=== PATIENT | female | born 1955 | race Caucasian/White ===

== ENCOUNTER 2016-11-23 07:40 | Inpatient (IN) ==
[~2016-11-23 07:40] MED LIST: ACETAMINOPHEN 500 MG TABLET PO ONE; CLINDAMYCIN PREMIX 900 MG/50 ML BAG IV ONE; DEXAMETHASONE 4 MG/ML INJECTION IVP ONE; FAMOTIDINE PREMIX 20 MG/50 ML BAG IV ONE; LIDOCAINE 1% (10mg/ml) 10mL MDV SQ ONE; MELOXICAM 15 MG TABLET PO ONE; METOCLOPRAMIDE 10mg/2ml INJECTION IVP ONE; NOZIN NASAL SWAB NAS ONE; ONDANSETRON 4 MG/2 ML INJECTION IVP ONE; TRANEXAMIC ACID 1,000 MG in NS 100 ML IV ONE
[2016-11-23] MEDS ORDERED: EPINEPHRINE OPSITE ONE (08:00)
[2016-11-23] MEDS ORDERED: KETOROLAC OPSITE ONE (08:00)
[2016-11-23] MEDS ORDERED: BUPIVACAINE 0.25% OPSITE ONE (08:00)
[2016-11-23] MEDS ORDERED: NS OPSITE ONE (08:00)
[2016-11-23] MEDS: LR 1,000 ML IV SCH ×2 (09:08→12:05)
--- NOTE | 2016-11-23 09:58 | Anesthesia Preoperative Report ---
Anesthesia Preoperative Record - Date and Time Date: 11/23/16 Preoperative Diagnosis: Arthritis left hip Proposed Procedure: TKA NPO Since Date: 11/23/16 NPO Since Time: 05:00 Allergies/Adverse Reactions: Allergies Allergy/AdvReac Type Severity Reaction Status Date / Time amoxicillin Allergy Unknown RASH Verified 11/23/16 08:38 morphine Allergy Unknown ITCH Verified 11/23/16 08:38 pseudoephedrine Allergy Unknown TACHYCARDIA Verified 11/23/16 08:38 Sulfa (Sulfonamide Allergy Unknown visual Verified 11/23/16 08:38 Antibiotics) disturbances metoprolol AdvReac Mild Headache Verified 11/23/16 08:39 rosuvastatin AdvReac Unknown MUSCLE Verified 11/23/16 08:38 CRAMPS simvastatin AdvReac Unknown MUSCLE Verified 11/23/16 08:38 STIFFNESS - Vital Signs Vital Signs: Temperature 98.4 F 11/23/16 08:39 Pulse Rate 86 11/23/16 08:39 Respiratory Rate 13 11/23/16 08:39 Blood Pressure 109/61 11/23/16 08:39 Pulse Oximetry 95 11/23/16 08:39 Oxygen Delivery Method Room Air Height and Weight: Height 1.6 m Weight 83.3 kg Body Mass Index 32.5 - Medications Inpatient Medications: Current Medications Lactated Ringer's (Lactated Ringers) 1,000 mls @ 50 mls/hr IV .Q20H ROBBIN Last Admin: 11/23/16 09:08 Dose: 50 mls/hr Epinephrine HCl 0.25 mg/Bupivacaine HCl 30 ml/Ketorolac Tromethamine 60 mg/ Sodium Chloride 62.25 mls @ 1 mls/hr OPSITE INTRAOP ONE PRN Reason: Protocol Stop: 11/25/16 22:14 Sodium Chloride (Iv Flush) 10 - 80 ml IVF PRN PRN PRN Reason: Flushing Home Medications: Home Medications Medication Instructions Recorded Confirmed Type Estradiol 2 mg PO DAILY #0 11/14/09 11/23/16 History Lisinopril 20 mg PO DAILY #0 11/14/09 11/23/16 History Venlafaxine HCl [Effexor Xr] 150 mg PO DAILY #0 11/14/09 11/23/16 History fentanyl 25 mcg/hr transdermal 1 patch TD Q48H 11/08/16 11/23/16 History patch oxycodone-acetaminophen 7.5 mg-325 2 tab PO Q4H 11/08/16 11/23/16 History mg tablet pregabalin 100 mg capsule 100 mg PO QID 11/08/16 11/23/16 History Ferrous Sulfate [Ferrous Sulfate] 1 tab PO TID 11/09/16 11/23/16 History Ketorolac Tab [Toradol] 10 mg PO TID 11/23/16 11/23/16 History Is Patient on Beta Jaclyn?: No - Medical History Respiratory: Reports: Chronic Obstructive Pulmonary Disease (COPD), Sleep Apnea Cardiovascular: Reports: Heart Murmur, Hypertension, Valvular Heart Disease Neuro/Musculoskeletal: Reports: Muscle Weakness Anesthesia Reactions: nausea and vomiting - Surgical History Neurological Surgeries: Reports: Other (lumbar laminectomy; lumbar fusion w/ hardware ) Cardiac Surgeries/Treatments: Reports: Cardiac Catheterization, Other (Mitral valve repair with [employer]tr[employer] ring) Respiratory Surgery/Treatments: Reports: CPAP Use GI Surgery/Treatments: Reports: Appendectomy, Colonoscopy Musculoskeletal Surgery/Tx: Reports: Carpal Tunnel Release (Le[place]), Orthopedic Surgery (Rt PCL, ACL, other knee surgeries x2; bunionectomy; hammertoes; torn tendon), Other (repair torn tendon left arm) Reproductive Surgery/Treatment: Reports: Hysterectomy, Hysteroscopy, Oophorectomy Hx Family Anesthesia Reaction: No History of Motion Sickness: No - Social History Smoking Status: Former smoker Packs per day: 1 Pack-years: 30 Hx Chewing Tobacco Use: No Second Hand Exposure: No Substance Use Type: does not use Alcohol Intake Frequency: does not drink - Pertinent Findings EKG Rhythm: Normal Sinus Rhythm - Physical Exam Respiratory Exam: Present: lungs clear Cardiovascular Exam: Present: regular rate and rhythm, systolic murmur - Airway Assessment Mallampati Score: I TMD: 3 Fingerbreadths Neck Extension: good Teeth: chipped teeth/crowns Overall Assessment: no airway concerns - ASA ASA Score: 3 - Plan Anesthesia: General Inhalation Gases - Discussion Discussion: Discussed risks/options/alternatives of anesthesia and questions answered. Patient consents. Nursing pain assessment noted. Present for Discussion: family member Attestation Statement: Prior to the delivery of any anesthetic medication, I examined the patient, developed the plan, obtained the patient's consent and discussed the risk and benefits of the procedure with the patient/guardian. - Additional Information Seen by Anesthesia: Yes
[2016-11-23] MEDS ORDERED: PROPOFOL 20 ML ONE (10:21)
[2016-11-23] MEDS ORDERED: ROCURONIUM 50 MG/5 ML INJECTION IVP ONE ×2 (10:22→11:24)
[2016-11-23] MEDS ORDERED: FentaNYL 250 MCG/5 ML INJECTION ONE (10:24)
[2016-11-23] MEDS ORDERED: PROPOFOL 500 MG/50 ML VIAL IV ONE ×2 (10:31→11:58)
[2016-11-23] MEDS ORDERED: HYDROMORPHONE 2 MG/ML INJECTION ONE (10:38)
[2016-11-23] MEDS ORDERED: KETAMINE 500 MG/10 ML INJECTION ONE (10:43)
[2016-11-23] MEDS ORDERED: SALINE FLUSH 10ml SYRINGE ONE (11:03)
[2016-11-23] MEDS ORDERED: PHENYLEPHRINE INJ 10 MG/ML VIAL IV ONE (11:03)
[2016-11-23] MEDS ORDERED: HYDROMORPHONE 2 MG/ML INJECTION IVP PRN (11:05)
[2016-11-23] MEDS ORDERED: VANCOMYCIN 1,000 MG INJECTION ONE (12:02)
[2016-11-23] MEDS ORDERED: SUGAMMADEX 200mg/2ml INJECTION IVP ONE (12:39)
--- NOTE | 2016-11-23 12:54 | Operative Note ---
- Procedure Date of Admission: 11/23/16 Preoperative Diagnosis: hip primary DJD Postoperative Diagnosis: Same as preoperative diagnosis. Operation: total hip arthroplasty Surgeon: Martinez Guzman MD Marking Machine Tender: STALIN Morris Complications: None. Anesthesia: General Inhalation Gases Estimated Blood Loss: See Anesthesia Record. Fluids: Please see Anesthesia Record. Description of Procedure: Mrs. Gamboa and her left hip were identified and marked in the preoperative holding area. She is brought back to the operating suite and placed supine on the operating table. She placed under general anesthesia and intubated. She is in placed in a lateral decubitus position with the left side up. The left lower extremity was prepped and draped in my normal sterile fashion. Timeout was performed. Mrs. Upton had severe arthritis and a leg length discrepancy of 14 mm. e-channel assisted robotic surgery was utilized. A direct superior approach was utilized. The piriformis was detached and tagged. A capsulotomy was performed the hip dislocated. A femoral neck osteotomy was made at the pre-templated level. The femoral head was removed. The acetabulum was exposed. She had abundant amount of ground bone as well as mushed labrum. Labrum was removed. Acetabulum was then registered. Using the robotic arm within reamed with a 53 reamer. There was a defect superior posteriorly as expected but did not fill to be large enough to require an augment. I then placed a titanium cup 54 mm again using the robotic arm and to a 20/40 position. It seated well. I placed 2 screws in the posterior superior quadrant. Both had good bites. The proximal femur was exposed and broached to a 4 and trialed with a 4 Accolade 2 stem. With a -5 head we regained 14 mm in length. We did switch to 127 neck and this felt better was more stable. Leg length was within a millimeter. After thorough irrigation a final Accolade 2 size 4 127 stem was placed followed by -5 ceramic 36 cm head. Final reduction was performed. Betadine solution was used throughout the case for irrigation. Joint cocktail was also injected the soft tissues. The capsulotomy and piriformis tendon were repaired with Ethibond. 1 g vancomycin powder was placed into the wound. #1 Vicryl was used to close the muscle fascia. I then left my partner to close the subcutaneous tissue with 2-0 Vicryl followed by running 4-0 Monocryl and Dermabond. She'll then be taken to the recovery room under the care of anesthesia.
--- NOTE | 2016-11-23 13:04 | History & Physical Update ---
- History and Physical Update Date: 11/23/16 Update: I evaluated this patient and found no changes in the history and clinical exam findings. The treatment plan and recommendations are also unchanged from the previous documentation.
[2016-11-23] MEDS ORDERED: DiphenhydrAMINE 50 MG/ML INJECTION IVP PRN (13:29)
[2016-11-23] MEDS ORDERED: LORazepam 1 MG TABLET PO PRN (13:29)
[2016-11-23] MEDS ORDERED: DiphenhydrAMINE 25 MG CAPSULE PO PRN (13:29)
[2016-11-23] MEDS ORDERED: NOZIN NASAL SWAB NAS ONE (13:29)
[2016-11-23] MEDS ORDERED: NAPROXEN 220 MG TABLET PO PRN (13:29)
[2016-11-23] MEDS ORDERED: ONDANSETRON 4 MG/2 ML INJECTION IVP PRN (13:29)
--- NOTE | 2016-11-23 13:34 | Anesthesia Postoperative Note ---
- Date and Time Date: 11/23/16 Time: 13:34 - Status Patient Participated in Evaluation: Patient Participated in Person Vital Signs: Temperature 98.1 F 11/23/16 13:16 Pulse Rate 88 11/23/16 13:16 Respiratory Rate 10 11/23/16 13:16 Blood Pressure 82/54 11/23/16 13:16 Pulse Oximetry 100 11/23/16 13:16 Oxygen Delivery Method Simple Mask Oxygen Flow Rate 5 Respiratory Function: Airway Patent Cardiovascular Function: Regular Pulse EKG Rhythm: Normal Sinus Rhythm Mental Status: Alert and Oriented Pain Intensity: 3 Hydration: Taking PO Fluids, IV Infusing Complications During Recover: None Apparent - Follow-Up Instructions Instructions: Per Surgeon
[2016-11-23] MEDS: HYDROMORPHONE 2 MG/ML INJECTION IVP PRN ×4 (13:47→14:51)
[2016-11-23] MEDS ORDERED: SALINE FLUSH 10ml SYRINGE IV ONE (13:53)
--- NOTE | 2016-11-23 15:02 | XRay Report ---
Indication: postoperative image left hip replacement PROCEDURE: XR pelvis w/ 1 view LT hip: Encounter: Initial Comparison: Pelvis CT dated November 09, 2016 Findings: Postoperative changes of left total hip replacement are seen. There is expected postoperative subcutaneous gas. No evidence of hardware failure or acute fracture. No retained radiopaque surgical instruments or sponges seen. Impression: New left total hip prosthesis without evidence of immediate complication. .
[2016-11-23] MEDS: NOZIN NASAL SWAB NAS SCH ×2 (15:22→21:41)
[2016-11-23] MEDS: NS 1,000 ML IV SCH ×3 (15:29→22:48)
[2016-11-23] MEDS: OXYCODONE IR 5 MG TABLET PO PRN ×3 (15:29→23:27)
[2016-11-23] MEDS ORDERED: SALINE FLUSH 10ml SYRINGE IVF PRN (17:00)
[2016-11-23] MEDS: CLINDAMYCIN PREMIX 900 MG/50 ML BAG IV SCH ×2 (17:11→22:18)
[2016-11-23] MEDS: ACETAMINOPHEN 325 MG TABLET PO SCH ×2 (17:56→20:24)
[2016-11-23] MEDS: FERROUS SULFATE 324 MG TABLET PO SCH (17:56)
[2016-11-23] MEDS: SENNOSIDES 8.6 MG TABLET PO SCH ×2 (20:24→21:41)
[2016-11-23] MEDS: DOCUSATE SODIUM 100 MG CAPSULE PO SCH (20:24)
[2016-11-23] MEDS: ASPIRIN *EC* 325 MG TABLET PO SCH (20:24)
[2016-11-24] MEDS: OXYCODONE IR 5 MG TABLET PO PRN ×4 (02:32→13:08)
[2016-11-24] MEDS: NS 1,000 ML IV SCH ×2 (03:30→14:34)
[2016-11-24] MEDS: CLINDAMYCIN PREMIX 900 MG/50 ML BAG IV SCH (05:15)
[2016-11-24] MEDS: NOZIN NASAL SWAB NAS SCH ×2 (05:15→14:51)
--- NOTE | 2016-11-24 07:45 | Orthopedic Progress Note ---
Date: Subjective/Severity of Illness: Betsy is doing great. Pain is controlled. She has been ambulatory with good tolerance. Reports her leg length to be nearly equal. Denies CP/cough/SOA. Hopes to go to IRU at [facility] [place]> Orthopedic Objective PO Vital signs: Temperature 99.5 F 11/24/16 07:30 Pulse Rate 81 11/24/16 07:30 Respiratory Rate 16 11/24/16 07:30 Blood Pressure 122/71 11/24/16 07:30 Pulse Oximetry 96 11/24/16 07:30 Oxygen Delivery Method Room Air Oxygen Flow Rate 2 Height and Weight: Height 5 ft 3 in Weight 180 lb 15.992 oz Body Mass Index 32.5 - Constitutional General Appearance: Present: no acute distress - Respiratory Exam Present: non-labored - Cardiovascular Exam Present: pedal pulses intact - Extremities Exam Extremities: Present: pulses intact. Absent: calf tenderness - Surgical Site Incision: Mepilex dressing intact, no drainage - Neurological Exam Present: no deficits - Psychiatric Exam Present: alert, normal affect - Labs Result Diagrams: 11/24/16 04:08 11/24/16 04:08 Abnormal lab results 11/24/16 11/24/16 Range/Units 04:08 04:08 RBC 3.32 L (4.00-5.20) M/MM3 Hgb 9.4 L (12-16) GM/DL Hct 30.2 L (36-46) % BUN 29.0 H (7-17) MG/DL BUN/Creatinine Ratio 32 H (6-26) RATIO H & H 11/24/16 Range/Units 04:08 Hgb 9.4 L (12-16) GM/DL Hct 30.2 L (36-46) % Orthopedic Assessment and Plan (1) Arthritis, hip Status: Acute Assessment and Plan: Betsy is doing great. Aspirin for DVT coverage. Mobilization and SCDs added for additional coverage. IRU consult placed. CM for discharge planning. Monitor labs. Hgb 9.4 Hospital Course Summary Disclaimer: The visit summary below is not to be considered part of the above Progress Note.
[2016-11-24] MEDS ORDERED: VENLAFAXINE 150 MG PO SCH (09:00)
[2016-11-24] MEDS ORDERED: LISINOPRIL 20 MG TABLET PO SCH (09:00)
[2016-11-24] MEDS ORDERED: POLYETHYL GLYCOL 3350 17gm PACKET PO SCH (09:00)
[2016-11-24] MEDS: ASPIRIN *EC* 325 MG TABLET PO SCH (09:14)
[2016-11-24] MEDS: DOCUSATE SODIUM 100 MG CAPSULE PO SCH (09:14)
[2016-11-24] MEDS: FERROUS SULFATE 324 MG TABLET PO SCH ×2 (09:14→13:08)
[2016-11-24] MEDS: ACETAMINOPHEN 325 MG TABLET PO SCH ×2 (09:14→13:08)
[2016-11-24] MEDS ORDERED: ESTRADIOL 2 MG TABLET PO SCH (09:45)
[2016-11-24] MEDS: PREGABALIN 100 MG CAPSULE PO SCH ×2 (10:07→13:10)
[2016-11-24] MEDS ORDERED: SENNOSIDES 8.6 MG TABLET PO PRN (13:09)
--- NOTE | 2016-11-24 14:10 | Discharge Summary ---
Orthopedic Discharge Info Date of admission: 11/23/16 08:02 Primary care physician: Osvaldo Lakhani Attending Physician: Garrett Guzman MD Consults: 11/23/16 IRU Screening [Inpatient Rehab Screening] [CONS] Routine Screen requested by:: Family/Patient Comment Text:: L HERMILA; POSS DC 11/24, BMI INSURANCE 11/23/16 08:18 Consult to Anesthesiology [CONS] Routine Consulting Provider: STALIN Lowery Reason For Exam: Preoperative Assessment 11/23/16 09:00 Doctor [Physician Consult] [CONS] Routine Consulting Provider: America Navarro Reason For Exam: CONT CARE Ordering Provider has Notified Van Cdl Driver: Yes 11/23/16 13:29 Case Management Consult [CONS] Routine Reason For Exam: Discharge Planning DME-Walker [CONS] Routine Height: 5 ft 3 in Weight: 183 lb 10.321 oz Comment: change dressing in 2 weeks Total Joint Outpatient Therapy [CONS] Routine Comment: change dressing in 2 weeks - Discharge Diagnosis (1) Arthritis, hip Status: Acute - Procedures Procedures: Left HERMILA - Laboratory Result Diagrams: 11/24/16 04:08 11/24/16 04:08 Laboratory: Abnormal lab results 11/24/16 11/24/16 Range/Units 04:08 04:08 RBC 3.32 L (4.00-5.20) M/MM3 Hgb 9.4 L (12-16) GM/DL Hct 30.2 L (36-46) % BUN 29.0 H (7-17) MG/DL BUN/Creatinine Ratio 32 H (6-26) RATIO H & H 11/24/16 Range/Units 04:08 Hgb 9.4 L (12-16) GM/DL Hct 30.2 L (36-46) % Orthopedic Discharge HPI - HPI Comments This patient was admitted for elective surgical tx of end stage degenerative joint disease that failed to respond to conservative treatment. Further details of this is found in the admission H&P. Orthopedic Hospital Course Hospital course: 11/24/16 14:06 After appropriate preoperative clearance and signing of operative consent, the patient was given IV antibiotics, according to orthopedic protocol. The patient was taken to the operating room and underwent elective joint arthroplasty. Following surgery, antibiotics were discontinued less than 24 hours according to joint protocol. Appropriate anticoagulants were initiated and SCDs added for DVT prevention. The dressing was clean, dry, and intact. Pain control was obtained via multimodal approach. Bowel motivation addressed with scheduled and PRN medications. Early mobilization was initiated through PT services. Discharge arrangements made by a collaborative effort between the patient and Case Management. Follow-up is scheduled in 2-3 weeks. Discharge instructions given by orthopedic providers and nursing staff at discharge. Discharge condition was good. Ongoing care required?: No - Postoperative Anemia patient received IVF, labs monitored daily, no intervention required, HGB drop- acceptable Discharge Plan - Med Rec/Dispo Referrals/Follow Up: Garrett Guzman MD [Physician] - 12/15/16 1:30 pm [place] Inst[place] [facility] [place] Prescriptions: New Acetaminophen [Tylenol] 650 mg PO QID tablet Aspirin *EC* [Ecotrin] 325 mg PO BID tablet Naproxen [Aleve] 440 mg PO BID PRN tablet PRN Reason: Pain Oxycodone *Ir* [Roxicodone *Ir*] 5 - 15 mg PO Q3H PRN #60 tablet PRN Reason: Breakthrough Pain Continue Estradiol 2 mg PO DAILY #0 Lisinopril 20 mg PO DAILY #0 Venlafaxine HCl [Effexor Xr] 150 mg PO DAILY #0 Ferrous Sulfate 1 tab PO TID Discontinued Ketorolac Tab [Toradol] 10 mg PO TID fentanyl 25 mcg/hr transdermal patch 1 patch TD Q48H oxycodone-acetaminophen 7.5 mg-325 mg tablet 2 tab PO Q4H - Disposition 62 [place] [facility] [place]
[2016-11-25] MEDS ORDERED: BISACODYL 10 MG SUPPOSITORY RECTALLY SCH (20:00)
== END 2016-11-24 14:55 | DRG 470 ==
LOC: SRG 08:02
PROVIDERS: ADMIT Orthopaedic Surgery; ATTEND Orthopaedic Surgery

== ENCOUNTER 2016-11-24 14:55 | Inpatient (IN) ==
[2016-11-24 15:44] VITALS: BMI 31.2
[2016-11-24] MEDS ORDERED: LORazepam 1 MG TABLET PO PRN (16:43)
[2016-11-24] MEDS ORDERED: SENNOSIDES 8.6 MG TABLET PO PRN (16:43)
[2016-11-24] MEDS ORDERED: DiphenhydrAMINE 25 MG CAPSULE PO PRN (16:43)
[2016-11-24] MEDS: ACETAMINOPHEN 325 MG TABLET PO SCH ×2 (17:25→20:32)
[2016-11-24] MEDS: PREGABALIN 100 MG CAPSULE PO SCH ×2 (17:25→20:32)
[2016-11-24] MEDS: Oxycodone *IR* 5 MG TABLET PO PRN ×2 (17:26→20:32)
[2016-11-24] MEDS: FERROUS SULFATE 324 MG TABLET PO SCH (17:26)
[2016-11-24] MEDS: ASPIRIN *EC* 325 MG TABLET PO SCH (20:31)
[2016-11-24] MEDS: DOCUSATE SODIUM 100 MG CAPSULE PO SCH (20:37)
[2016-11-24] MEDS: SENNOSIDES 8.6 MG TABLET PO SCH (23:09)
[2016-11-25] MEDS: Oxycodone *IR* 5 MG TABLET PO PRN ×6 (02:02→21:38)
[2016-11-25] MEDS: NAPROXEN 220 MG TABLET PO PRN (02:17)
[2016-11-25] MEDS ORDERED: LISINOPRIL 20 MG TABLET PO SCH (09:00)
[2016-11-25] MEDS: FERROUS SULFATE 324 MG TABLET PO SCH ×3 (09:08→17:34)
[2016-11-25] MEDS: ACETAMINOPHEN 325 MG TABLET PO SCH ×4 (09:08→20:33)
[2016-11-25] MEDS: PREGABALIN 100 MG CAPSULE PO SCH ×4 (09:08→20:27)
[2016-11-25] MEDS: ESTRADIOL 2 MG TABLET PO SCH (09:09)
[2016-11-25] MEDS: POLYETHYL GLYCOL 3350 17gm PACKET PO SCH (09:09)
[2016-11-25] MEDS: DOCUSATE SODIUM 100 MG CAPSULE PO SCH ×2 (09:50→20:24)
[2016-11-25] MEDS: ASPIRIN *EC* 325 MG TABLET PO SCH ×2 (10:45→20:27)
--- NOTE | 2016-11-25 12:38 | Consult Note ---
<Lorie Graves - Last Filed: 11/25/16 13:00> Consult Information - Data of Consult Patient: new to practice Consult date: 11/25/16 Requesting Physician: Danny Jaimes MD Primary Care Provider: Osvaldo Lakhani Family Provider: Osvaldo Lakhani - Consult Narrative Reason for consult: medical management History of present illness: Betsy Gamboa is a 61-year-old female who was admitted on 11/24/16 for elective surgical treatment of end stage degenerative joint disease that failed to respond to conservative treatment. She underwent successful left total hip arthroplasty on 11/24/[address] Guzman. She was accepted and transferred to IRU on 11/25/16 for continued rehabilitation and pain management. She has a significant past medical history for hypertension, dyslipidemia and depression for which the hospitalist service was consulted for medical management. [facility] Patient Stated Medical History Peripheral Neuropathy Yes Heart Murmur Yes Hypertension Yes Valvular Heart Disease Yes Chronic Obstructive Pulmonary Yes Disease (COPD) Sleep Apnea Yes Constipation No Hx Incontinence Yes Hx Urinary Tract Infection Yes Anemia Yes Other Musculoskeletal Yes: fractured rt clavicle currently Other Infectious Yes: Staph infection after spine surgery Anesthesia Reactions Yes: N/V Surgical History: total hysterectomy, mitral valve repair, seun CTR, Lt elbow, Lumbar fusion, clavicle Family History: Family History (Last Reviewed 11/08/16 @ 15:30 by Garrett Guzman MD) Mother, age 75. Pancreatic Cancer Father, age 68 MVC, cardiomegaly (found on autopsy) Brother, alive Hypertension - Social History Smoking status: Former smoker Quit date: 08/24/16 Time spent discussing smoking cessation with patient: 3 to 10 minutes Substance use type: does not use Alcohol intake frequency: holidays/special occasions only Housing: house Household members: none Does patient use chewing tobacco?: No Current residence: Apartment/Private Home Review of Systems All systems: reviewed and no additional remarkable complaints except as stated - Constitutional Constitutional: Absent: chills, fatigue, fever(s), headache(s), lethargy - EENMT Eyes: Absent: blurry vision, change in vision Balance: Absent: falling to one side Nose: Absent: nosebleeds Mouth/Throat: Absent: sore throat, changes in swallowing - Cardiovascular Cardiovascular: Absent: chest pain, palpitations, syncope, dyspnea on exertion, orthopnea Vascular: Absent: pedal edema, unilateral swelling - Respiratory Respiratory: Absent: cough, dyspnea, hemoptysis, dyspnea on exertion, wheezing, pain on inspiration, chest congestion - Gastrointestinal Gastrointestinal: Present: constipation. Absent: abdominal pain, coffee ground emesis, diarrhea, melena, nausea, vomiting - Genitourinary Genitourinary: Absent: dysuria, hematuria Menstruation: post menopausal - Musculoskeletal Musculoskeletal: Absent: back pain, deformity, neck pain - Integumentary/Breasts Integumentary: Absent: lesions, rash, jaundice - Neurological Neurological: Absent: abnormal speech, dizziness, memory loss - Psychiatric Psychiatric: Present: anxiety, depression - Endocrine Endocrine: Absent: palpitations Medications Home Medications Medication Instructions Recorded Confirmed Type Estradiol 2 mg PO DAILY #0 11/14/09 11/24/16 History Lisinopril 20 mg PO DAILY #0 11/14/09 11/24/16 History Venlafaxine HCl [Effexor Xr] 150 mg PO DAILY #0 11/14/09 11/24/16 History Ferrous Sulfate 1 tab PO TID 11/09/16 11/24/16 History Allergies Allergy/AdvReac Type Severity Reaction Status Date / Time amoxicillin Allergy Unknown RASH Verified 11/23/16 08:38 morphine Allergy Unknown ITCH Verified 11/23/16 08:38 pseudoephedrine Allergy Unknown TACHYCARDIA Verified 11/23/16 08:38 Sulfa (Sulfonamide Allergy Unknown visual Verified 11/23/16 08:38 Antibiotics) disturbances metoprolol AdvReac Mild Headache Verified 11/23/16 08:39 rosuvastatin AdvReac Unknown MUSCLE Verified 11/23/16 08:38 CRAMPS simvastatin AdvReac Unknown MUSCLE Verified 11/23/16 08:38 STIFFNESS Exam Vital Signs: Temperature 98.3 F 11/25/16 08:00 Pulse Rate 88 11/25/16 08:00 Respiratory Rate 18 11/25/16 08:00 Blood Pressure 105/66 11/25/16 08:00 Pulse Oximetry 96 11/25/16 08:00 Oxygen Delivery Method Room Air Height: 5 ft 4 in Weight: 181 lb 14.102 oz Body Mass Index: 31.2 - Constitutional Present: no acute distress, well nourished, well developed, cooperative - Routine HEENT Exam Head: Present: normocephalic, atraumatic Eye: Present: PERRL. Absent: conjunctival icterus, scleral injection ENT: Present: mucous membranes moist, dentition normal - Routine Neck Exam Present: supple, full ROM, trachea midline - Routine Chest/Breast/Axilla Exam Chest wall: Absent: tenderness - Routine Respiratory Exam Present: CTA bilaterally. Absent: accessory muscle use, dyspnea, rales, respiratory distress, rhonchi, stridor, wheezes, crackles - Routine Cardiovascular Exam Present: RRR, S1, S2 - Routine Abdominal Exam Present: normoactive bowel sounds, non distended, non tender. Absent: rebound, guarding, firm, rigid - Routine Extremities Exam Present: no edema, pulses intact. Absent: cyanosis, calf tenderness - Routine Back/Spine/Pelvis Exam Back/Spine: Present: full ROM. Absent: warmth - Routine Skin Exam Present: intact, dry, warm, scars (surgical left hip - clean, dry and intact). Absent: rash - Routine Neurological Exam Present: alert, oriented X3, moving all extremities, hearing grossly intact, normal speech. Absent: motor deficit - Routine Psychiatric Exam Present: normal affect, cooperative, good judgment Results - Labs CBC & Chem 7: 11/25/16 04:26 11/25/16 04:26 Assessment and Plan (1) Status post total hip replacement, left Current visit: Yes Status: Acute (2) Anemia Current visit: Yes Status: Acute (3) Right clavicle fracture Problem details: no signs of healing on xray today, I assume this is because she has been using a walker, I would recommend checking her Vit D level (we will check with her PCP office) Current visit: No Status: Chronic (4) High cholesterol Current visit: No Status: Chronic (5) HTN (hypertension) Current visit: No Status: Chronic (6) Depression Current visit: No Status: Chronic (7) Obesity (BMI 30-39.9) Current visit: Yes Status: Chronic (8) Ovarian failure Current visit: Yes Status: Chronic (9) Osteoarthritis Current visit: Yes Status: Chronic Assessment and Plan: -S/P Left Hip Arthroplasty on 11/24/[address] Guzman. .Agree with admission to IRU for continued rehabilitation and therapies under the care of Dr. Jaimes. .Pain management per Dr. Jaimes. .Encourage participation in therapies for strengthening and improvement in functional abilities. .Provide a safe and supportive environment. .Bowel motivation in light of narcotic use for pain control. .Incentive spironmetry for pulmonary toileting. -Anemia .Hemoglobin today was 8.5, most likely secondary to recent surgery. .Patient currently asymptomatic, though blood pressure low at 86/53. Will recheck in AM to monitor. .Continue home iron supplement. -Right clavicle fracture, chronic, present prior to admission. .Patient denies any concerns or complaints regarding shoulder. MRI recommended by Dr. Guzman in light of smoking history and concern for possible pathologic fracture. Recommend follow-up as outpatient unless should become painful. -High cholesterol, chronic .Recommend follow up as outpatient. No current home medication. -Hypertension, chronic .Blood pressure low to borderline low. Will hold home lisinopril and continue to monitor blood pressure closely. -Depression, chronic .Continue home medications including Lyrica and Effexor. -Obesity, chronic -Ovarian failure, chronic .Continue home estradiol. Note increased risk for DVT in light of recent surgery and hormone replacement. Will recommend SCDs when resting and foot pumping as able. Upon discharge, patient's care will return to her PCP. Hospital Course Summary Disclaimer: The visit summary below is not to be considered part of the above Progress Note. Sepsis Assessment - Evaluation Sepsis screening result: No Definite Risk <Darius Jack - Last Filed: 11/25/16 18:14> Consult Information - Data of Consult Requesting Physician: Danny Jaimes MD Primary Care Provider: Osvaldo Lakhani [facility] Provider: Osvaldo Lakhani [facility] Patient Stated Medical History Peripheral Neuropathy Yes Heart Murmur Yes Hypertension Yes Valvular Heart Disease Yes Chronic Obstructive Pulmonary Yes Disease (COPD) Sleep Apnea Yes Constipation No Hx Incontinence Yes Hx Urinary Tract Infection Yes Anemia Yes Other Musculoskeletal Yes: fractured rt clavicle currently Other Infectious Yes: Staph infection after spine surgery Anesthesia Reactions Yes: N/V Clinic Medical History (Last Updated 11/25/16 @ 12:55 by STALIN Mukherjee) Arthritis (Acute Medical) Depression (Chronic Medical) HTN (hypertension) (Chronic Medical) High cholesterol (Chronic Medical) Family History: Family History (Last Reviewed 11/08/16 @ 15:30 by Garrett Guzman MD) Mother Cancer Exam Vital Signs: Temperature 98.5 F 11/25/16 15:15 Pulse Rate 82 11/25/16 15:15 Respiratory Rate 16 11/25/16 15:15 Blood Pressure 104/65 11/25/16 15:15 Pulse Oximetry 96 11/25/16 15:15 Oxygen Delivery Method Room Air Height: 1.63 m Weight: 82.5 kg Results - Labs CBC & Chem 7: 11/25/16 04:26 11/25/16 04:26 Assessment and Plan (1) Status post total hip replacement, left Current visit: Yes Status: Acute (2) Anemia Current visit: Yes Status: Acute (3) Right clavicle fracture Problem details: no signs of healing on xray today, I assume this is because she has been using a walker, I would recommend checking her Vit D level (we will check with her PCP office) Current visit: No Status: Chronic (4) Osteoarthritis Current visit: Yes Status: Chronic (5) HTN (hypertension) Current visit: No Status: Chronic (6) High cholesterol Current visit: No Status: Chronic (7) Depression Current visit: No Status: Chronic (8) Ovarian failure Current visit: Yes Status: Chronic (9) Obesity (BMI 30-39.9) Current visit: Yes Status: Chronic Assessment and Plan: Have independently interviewed and examined pt. Chart reviewed. Case discussed with my PA. Care plan developed with my supervision; agree with above. Doing well today. Does note more pain to hip and legs - worked hard with therapy yesterday and today. Overall pain controlled. Breathing well-not SOA or congested. No chest pressure or palpitations. Eating well without nausea. Bowels stable. No f/c. Gen: [id number] looks comfortable Lungs: clear bilaterally without crackles or distress CV: regular MSE: awake alert appropriate. Thought linear Plan: Agree with admission to IRU to maximize functional status. Encourage therapy. Continue with pain control. Monitor hemoglobin. Hold lisinopril as BP low. Will follow along as pt progresses through rehab. Medically stable for IRU floor activities. Hospital Course Summary Disclaimer: The visit summary below is not to be considered part of the above Progress Note.
[2016-11-25] MEDS ORDERED: BISACODYL 10 MG SUPPOSITORY RECTALLY SCH (20:00)
[2016-11-26] MEDS: SENNOSIDES 8.6 MG TABLET PO SCH ×2 (01:08→21:11)
[2016-11-26] MEDS: Oxycodone *IR* 5 MG TABLET PO PRN ×5 (02:17→21:16)
[2016-11-26] MEDS: NAPROXEN 220 MG TABLET PO PRN (02:28)
[2016-11-26] MEDS: ASPIRIN *EC* 325 MG TABLET PO SCH ×2 (08:10→20:01)
[2016-11-26] MEDS: ACETAMINOPHEN 325 MG TABLET PO SCH ×4 (08:11→21:15)
[2016-11-26] MEDS: ESTRADIOL 2 MG TABLET PO SCH (08:11)
[2016-11-26] MEDS: PREGABALIN 100 MG CAPSULE PO SCH ×4 (08:11→20:01)
[2016-11-26] MEDS: FERROUS SULFATE 324 MG TABLET PO SCH ×3 (08:11→17:40)
[2016-11-26] MEDS: POLYETHYL GLYCOL 3350 17gm PACKET PO SCH (08:13)
--- NOTE | 2016-11-26 09:07 | Discharge Summary ---
Discharge Plan - Med Rec/Dispo Prescriptions: New Oxycodone *Ir* [Roxicodone *Ir*] 5 - 15 mg PO Q3H PRN #30 tablet PRN Reason: Breakthrough Pain PEG 3350 17gm PACKET [Miralax] 17 gm PO DAILY packet Sennosides [Senna Lax] 17.2 mg PO HS tablet Naproxen [Aleve] 440 mg PO BID PRN tablet PRN Reason: Pain Estradiol [Estrace] 2 mg PO DAILY tablet Docusate Sodium [Colace] 100 mg PO BID capsule Aspirin *EC* [Ecotrin] 325 mg PO BID tablet Pregabalin Cap [Lyrica] 100 mg PO QID capsule LORazepam [Ativan] 1 mg PO HS PRN tablet PRN Reason: Sleep Acetaminophen [Tylenol] 650 mg PO QID tablet Continue Lisinopril 20 mg PO DAILY #0 Venlafaxine HCl [Effexor Xr] 150 mg PO DAILY #0 Ferrous Sulfate 1 tab PO TID No Action Estradiol 2 mg PO DAILY #0 Acetaminophen [Tylenol] 650 mg PO QID tablet Aspirin *EC* [Ecotrin] 325 mg PO BID tablet Naproxen [Aleve] 440 mg PO BID PRN tablet PRN Reason: Pain Oxycodone *Ir* [Roxicodone *Ir*] 5 - 15 mg PO Q3H PRN #60 tablet PRN Reason: Breakthrough Pain - Disposition 01 Discharged Home, Self-Care
--- NOTE | 2016-11-26 09:14 | IRU History & Physical Report ---
HPI IRU Date: Chief complaint: Left hip replacement. HPI: 61 yo female s.p. left hip replacement on 11/24. She had been working with physical therapy and outpatient orthopedics in an attempt to avoid the replacement, but was unsuccussful. Post op, she was unable to manage adl due to pain and depression. She had been very motivated prior to surgery and was not able to continue this post op. She is admitted to IRU due to increased risk of injury and failure from depression and uncontrolled pain. Review of Systems - Constitutional Constitutional: Absent: chills, fatigue, fever(s), headache(s), lethargy - EENMT Eyes: Absent: blurry vision, change in vision Balance: Absent: falling to one side Nose: Absent: nosebleeds Mouth/Throat: Absent: sore throat, changes in swallowing - Cardiovascular Cardiovascular: Absent: chest pain, palpitations, syncope, dyspnea on exertion, orthopnea Vascular: Absent: pedal edema, unilateral swelling - Respiratory Respiratory: Absent: cough, dyspnea, hemoptysis, dyspnea on exertion, wheezing, pain on inspiration, chest congestion - Gastrointestinal Gastrointestinal: Present: constipation. Absent: abdominal pain, coffee ground emesis, diarrhea, melena, nausea, vomiting - Genitourinary Genitourinary: Absent: dysuria, hematuria Menstruation: post menopausal - Musculoskeletal Musculoskeletal: Absent: back pain, deformity, neck pain - Integumentary/Breasts Integumentary: Absent: lesions, rash, jaundice - Neurological Neurological: Absent: abnormal speech, dizziness, memory loss - Psychiatric Psychiatric: Present: anxiety, depression - Endocrine Endocrine: Absent: palpitations PFSH Patient Stated Medical History Peripheral Neuropathy Yes Heart Murmur Yes Hypertension Yes Valvular Heart Disease Yes Chronic Obstructive Pulmonary Yes Disease (COPD) Sleep Apnea Yes Constipation No Hx Incontinence Yes Hx Urinary Tract Infection Yes Anemia Yes Other Musculoskeletal Yes: fractured rt clavicle currently Other Infectious Yes: Staph infection after spine surgery Anesthesia Reactions Yes: N/V Clinic Medical History (Last Updated 11/25/16 @ 12:55 by STALIN Mukherjee) Arthritis (Acute Medical) Depression (Chronic Medical) High cholesterol (Chronic Medical) HTN (hypertension) (Chronic Medical) Surgical History: total hysterectomy, mitral valve repair, seun CTR, Lt elbow, Lumbar fusion, clavicle Family History: Family History (Last Reviewed 11/08/16 @ 15:30 by Garertt Guzman MD) Mother Cancer - Social History Smoking status: Former smoker Does patient use chewing tobacco?: No Current residence: Apartment/Private Home Medications Home Medications Medication Instructions Recorded Confirmed Type Estradiol 2 mg PO DAILY #0 11/14/09 11/24/16 History Lisinopril 20 mg PO DAILY #0 11/14/09 11/24/16 History Venlafaxine HCl [Effexor Xr] 150 mg PO DAILY #0 11/14/09 11/24/16 History Ferrous Sulfate 1 tab PO TID 11/09/16 11/24/16 History Allergies Allergy/AdvReac Type Severity Reaction Status Date / Time amoxicillin Allergy Unknown RASH Verified 11/23/16 08:38 morphine Allergy Unknown ITCH Verified 11/23/16 08:38 pseudoephedrine Allergy Unknown TACHYCARDIA Verified 11/23/16 08:38 Sulfa (Sulfonamide Allergy Unknown visual Verified 11/23/16 08:38 Antibiotics) disturbances metoprolol AdvReac Mild Headache Verified 11/23/16 08:39 rosuvastatin AdvReac Unknown MUSCLE Verified 11/23/16 08:38 CRAMPS simvastatin AdvReac Unknown MUSCLE Verified 11/23/16 08:38 STIFFNESS Exam Vital Signs: Temperature 98.7 F 11/25/16 23:06 Pulse Rate 88 11/25/16 23:06 Respiratory Rate 12 11/25/16 23:06 Blood Pressure 100/61 11/25/16 23:06 Pulse Oximetry 98 11/25/16 23:06 Oxygen Delivery Method Room Air Height: 1.63 m Weight: 82.5 kg Body Mass Index: 31.2 - Constitutional Present: no acute distress - Routine HEENT Exam Head: Present: normocephalic - Routine Respiratory Exam Present: CTA bilaterally - Routine Cardiovascular Exam Present: RRR, no murmur - Routine Skin Exam Comments: incision clean and dry. - Routine Psychiatric Exam Comments: Pt pleasant , slightly withdrawn Sepsis Assessment - Evaluation Sepsis screening result: No Definite Risk IRU A/P (1) Uncontrolled pain Current visit: Yes Status: Acute Oxycodone 5-15mg q 3 hr prn pain. Will look to taper as tolerated. (2) Status post total hip replacement, left Current visit: Yes Status: Acute PT and OT to work with pt and develop plan of care. (3) Depression Current visit: No Status: Chronic Cont with SSRI, activity and strength progression should help as well. - Course Hospital Course: Danny Jaimes MD: - Interventions to Obtain Goals PT Treatment Plan: Balance/Proprioception, Functional Activities, Gait Training , Patient/Family Education, Therapeutic Exercise OT Treatment Plan: ADL (Basic Care), Balance Training, IADL, Pt./Family Education, Ther. Exercise for ADL
--- NOTE | 2016-11-26 09:28 | IRU 24Hr Post Admit Eval ---
24 Hr Post Admission Physical - Relevant Changes Relevant Changes: No Reviewed: I have reviewed the patient's information and concur with the finding and results of the pre-admission screen. Certification: I certify the patient for rehabilitation. - Patient Condition (1) Uncontrolled pain Status: Acute Code(s): R52 - Pain, unspecified (2) Status post total hip replacement, left Status: Acute Code(s): Z96.642 - Presence of left artificial hip joint (3) Depression Status: Chronic Code(s): F32.9 - Major depressive disorder, single episode, unspecified - Prior Functional Status Lives With: Spouse Residence Type: Apartment/Private Home Assitive Devices: None Prior Functional Status: Indep. at home or school - Current Functional Status Failed Alternative Therapy: Arrived from Acute Care Patient Requirements: The patient requires oversight by rehabilitation physician to manage their rehabilitation treatment plan and multidisciplinary approach to care that can only be provided in an IRF and requires a multidisciplinary approach to care, provided by professional PTs, OTs, STs, dieticians, RTs, rehabilitation nurses and is not available in lesser levels of care. Physical Therapy Minutes: 90 Occupational Therapy Minutes: 90 Therapy: The patient is to receive therapy at least 5 days a week. ROM Deficit: Left Lower Extremity - Complications/Comorbidities Impact on Functional Outcomes: Despite depression and pain management issues, pt should progress to more functional status with inpatient IRU. Barriers to Discharge: Weakness, Balance, Endurance, Pain Control - Plan to Avoid Complications Plan to Avoid Complications: The patient cannot receive this care in a lesser intensive setting such as [facility] or Outpatient Therapy due to the patient requiring the following .
--- NOTE | 2016-11-26 09:35 | IRU Plan of Care ---
U Overall Plan of Care - Date Date: 11/26/16 - Patient Impairments (1) Uncontrolled pain Code(s): R52 - Pain, unspecified Status: Acute (2) Status post total hip replacement, left Code(s): Z96.642 - Presence of left artificial hip joint Status: Acute (3) Depression Code(s): F32.9 - Major depressive disorder, single episode, unspecified Status : Chronic - Relevant Changes Relevant Changes: No Reviewed: I have reviewed the patient's information and concur with the finding and results of the pre-admission screen. Certification: I certify the patient for rehabilitation. - Medical Prognosis Medical Prognosis: Good Vital Signs: Last Vital Signs Temp 98.4 F 11/26/16 07:00 Pulse 88 11/26/16 07:00 Resp 14 11/26/16 07:00 BP 128/55 11/26/16 07:00 Pulse Ox 95 11/26/16 07:00 - Anticipated Interventions Anticipated Interventions: The patient requires inpatient IRF care for PT, OT, and/or ST for residuals remaining from [] resulting in muscular weakness and strength deficits. ROM Deficit: Left Lower Extremity Strength Deficits: Left Lower Extremity - FIM Ambulation Distance: 262 Wheelchair Propulsion Distance: 262 Toileting Adaptive Equipment: Grab Bars Number of Continent Voids: 1 - Current Functional Status Failed Alternative Therapy: Arrived from Acute Care Patient Requires: The patient requires oversight by rehabilitation physician to manage their rehabilitation treatment plan and multidisciplinary approach to care that can only be provided in an IRF and requires a multidisciplinary approach to care, provided by professional PTs, OTs, STs, dieticians, RTs, rehabilitation nurses and is not available in lesser levels of care. Physical Therapy Minutes: 90 Occupational Therapy Minutes: 90 Therapy: The patient is to receive therapy at least 5 days a week. - Anticipated LOS/Outcomes Anticipated Functional Outcome: Improvement to better than preop function if pt continues with PT and OT both inpatient and outpatient. Anticipated DC Destination: Home Health Service Home Safety Plan: The patient will be provided with the development of a Home Safety Plan for return to a home or home-like environment and and to ensure safety post discharge. - Plan to Avoid Complications Barriers to Attaining Goals: Weakness, Balance, Endurance, Pain Control Plan to Avoid Complications: The patient cannot receive this care in a lesser intensive setting such as [facility] or Outpatient Therapy due to the patient requiring medical supervision due to depression and uncontrolled pain, both of which will increase her risk of failure and injury.
[2016-11-26] MEDS: DOCUSATE SODIUM 100 MG CAPSULE PO SCH ×2 (10:40→20:01)
[2016-11-27] MEDS: NAPROXEN 220 MG TABLET PO PRN (01:50)
[2016-11-27] MEDS: Oxycodone *IR* 5 MG TABLET PO PRN ×3 (01:50→08:34)
[2016-11-27] MEDS: DOCUSATE SODIUM 100 MG CAPSULE PO SCH (08:29)
[2016-11-27] MEDS: PREGABALIN 100 MG CAPSULE PO SCH (08:29)
[2016-11-27] MEDS: FERROUS SULFATE 324 MG TABLET PO SCH (08:29)
[2016-11-27] MEDS: ASPIRIN *EC* 325 MG TABLET PO SCH (08:29)
[2016-11-27] MEDS: ACETAMINOPHEN 325 MG TABLET PO SCH (08:30)
[2016-11-27] MEDS: ESTRADIOL 2 MG TABLET PO SCH (08:30)
[2016-11-27] MEDS: POLYETHYL GLYCOL 3350 17gm PACKET PO SCH (08:35)
[2016-11-27 10:01] VITALS: RESP 18; TEMP 98.4
--- NOTE | 2016-11-27 10:09 | Discharge Instructions ---
Discharge Plan - Med Rec/Dispo Referrals/Follow Up: Garrett Guzman MD [Physician] - (Dr. Tiffanie Guzman on 12/15/16 at 1:30 pm for Post-Op follow-up. [address] [place] [address] ) Osvaldo Briggs [Other] (Dr. Maci Lakhani on 12/03/16 at 10:00 am for Hosp. follow-up. [facility] [address] [place] [address]. . Will need CBC lab draw at that time to check blood counts) Additional Instructions: Please call clinic wednesday 11/29 to have CBC blood count checked Will need to take ASA 325 mg twice a day for 5 weeks. Monitor for any bleeding. Prescriptions: New Oxycodone *Ir* [Roxicodone *Ir*] 5 - 15 mg PO Q3H PRN #30 tablet PRN Reason: Breakthrough Pain PEG 3350 17gm PACKET [Miralax] 17 gm PO DAILY packet Sennosides [Senna Lax] 17.2 mg PO HS tablet Naproxen [Aleve] 440 mg PO BID PRN tablet PRN Reason: Pain Estradiol [Estrace] 2 mg PO DAILY tablet Docusate Sodium [Colace] 100 mg PO BID capsule Aspirin *EC* [Ecotrin] 325 mg PO BID tablet Pregabalin Cap [Lyrica] 100 mg PO QID capsule LORazepam [Ativan] 1 mg PO HS PRN tablet PRN Reason: Sleep Acetaminophen [Tylenol] 650 mg PO QID tablet Continue Lisinopril 20 mg PO DAILY #0 Venlafaxine HCl [Effexor Xr] 150 mg PO DAILY #0 Ferrous Sulfate 1 tab PO TID No Action Estradiol 2 mg PO DAILY #0 Acetaminophen [Tylenol] 650 mg PO QID tablet Aspirin *EC* [Ecotrin] 325 mg PO BID tablet Naproxen [Aleve] 440 mg PO BID PRN tablet PRN Reason: Pain Oxycodone *Ir* [Roxicodone *Ir*] 5 - 15 mg PO Q3H PRN #60 tablet PRN Reason: Breakthrough Pain Discharge Instructions/Outpatient Orders: Final Provider Discharge Instructions Location: Determined By Patient - Disposition 01 Discharged Home, Self-Care
--- NOTE | 2016-11-27 10:23 | Discharge Summary ---
Discharge Plan - Med Rec/Dispo Referrals/Follow Up: Osvaldo Briggs [Other] (Dr. Maci Lakhani on 12/03/16 at 10:00 am for Hosp. follow-up. [facility] [address] [place] [address]. . Will need CBC lab draw at that time to check blood counts) Garrett Guzman MD [Physician] - (Dr. Tiffanie Guzman on 12/15/16 at 1:30 pm for Post-Op follow-up. [address] [place] [address] ) Additional Instructions: Please call clinic wednesday 11/29 to have CBC blood count checked Will need to take ASA 325 mg twice a day for 5 weeks. Monitor for any bleeding. Prescriptions: New Oxycodone *Ir* [Roxicodone *Ir*] 5 - 15 mg PO Q3H PRN #30 tablet PRN Reason: Breakthrough Pain PEG 3350 17gm PACKET [Miralax] 17 gm PO DAILY packet Sennosides [Senna Lax] 17.2 mg PO HS tablet Naproxen [Aleve] 440 mg PO BID PRN tablet PRN Reason: Pain Estradiol [Estrace] 2 mg PO DAILY tablet Docusate Sodium [Colace] 100 mg PO BID capsule Aspirin *EC* [Ecotrin] 325 mg PO BID tablet Pregabalin Cap [Lyrica] 100 mg PO QID capsule LORazepam [Ativan] 1 mg PO HS PRN tablet PRN Reason: Sleep Acetaminophen [Tylenol] 650 mg PO QID tablet Continue Venlafaxine HCl [Effexor Xr] 150 mg PO DAILY #0 Ferrous Sulfate 1 tab PO TID Discontinued Lisinopril 20 mg PO DAILY #0 No Action Estradiol 2 mg PO DAILY #0 Acetaminophen [Tylenol] 650 mg PO QID tablet Aspirin *EC* [Ecotrin] 325 mg PO BID tablet Naproxen [Aleve] 440 mg PO BID PRN tablet PRN Reason: Pain Oxycodone *Ir* [Roxicodone *Ir*] 5 - 15 mg PO Q3H PRN #60 tablet PRN Reason: Breakthrough Pain Discharge Instructions/Outpatient Orders: Final Provider Discharge Instructions Location: Determined By Patient - Disposition 01 Discharged Home, Self-Care
[2016-11-27 10:30] VITALS: BP 124/77; PULSE 79
[2016-11-27 10:58] VITALS: O2SAT 96
--- NOTE | 2016-11-27 11:58 | Progress Note ---
<Mary Ann Gabriel V - Last Filed: 11/27/16 11:53> Subjective: Betsy is seen this morning in follow up. She is alert, orientated and feeling good. She is planning for discharge today. She verbalizes concerns about her Hgb being low today at 7.8. She is asymptomatic. She denies having any dizziness , lightheadedness. No bleeding or dark stools. We did discuss common postoperative anemia. Objective Vital signs: Temperature 98.4 F 11/27/16 07:00 Pulse Rate 79 11/27/16 10:57 Respiratory Rate 18 11/27/16 10:57 Blood Pressure 124/77 11/27/16 10:57 Pulse Oximetry 96 11/27/16 10:57 Oxygen Delivery Method Room Air Body Mass Index: 31.2 - Constitutional Present: no acute distress - Routine HEENT Exam Head: Present: normocephalic, atraumatic Eye: Present: EOMI, PERRL ENT: Present: mucous membranes moist - Routine Respiratory Exam Present: CTA bilaterally - Routine Cardiovascular Exam Present: RRR, S1, S2 - Routine Abdominal Exam Present: soft, normoactive bowel sounds - Routine Extremities Exam Comments: Hip pain post-op - Routine Back/Spine/Pelvis Exam Back/Spine: Present: full ROM - Routine Skin Exam Present: intact, warm - Routine Neurological Exam Present: alert, oriented X3, CN II-XII intact Results - Labs CBC & Chem 7: 11/27/16 04:11 11/26/16 04:36 Assessment and Plan (1) Depression Status: Chronic (2) Status post total hip replacement, left Status: Acute (3) Uncontrolled pain Status: Acute Assessment and Plan: 11/27/16 Overall, patient is medically stable for discharge. Did give patient a written order to obtain a CBC on Wednesday 11/29 at [facility], her primary care in [place]. Would like a CBC sent to Dr. Osvaldo Lakhani to continue to monitor the stopper of anemia. In the meantime. Did discuss signs and symptoms in which patient needs to return to [facility] emergency room including lightheadedness, passing of blood from her stools or other bleeding. She will continue on aspirin 325 milligrams twice a day for 5 weeks for postoperative DVT prophylaxis. We did discuss limiting further NSAIDs while on aspirin. Can encourage patient to also continue to take iron supplementation. Roxicodone as needed for ongoing pain control 30 minutes is spent with planning and coordinating discharge orders Follow-up appointment is scheduled with primary care provider for 12/03 Sepsis Assessment - Evaluation Sepsis screening result: No Definite Risk Hospital Course Summary Disclaimer: The visit summary below is not to be considered part of the above Progress Note. Hospital Course: 11/27/16 Overall, patient is medically stable for discharge. Did give patient a written order to obtain a CBC on Wednesday 11/29 at [facility], her primary care in [place]. Would like a CBC sent to Dr. Osvaldo Lakhani to continue to monitor the stopper of anemia. In the meantime. Did discuss signs and symptoms in which patient needs to return to [facility] emergency room including lightheadedness, passing of blood from her stools or other bleeding. She will continue on aspirin 325 milligrams twice a day for 5 weeks for postoperative DVT prophylaxis. We did discuss limiting further NSAIDs while on aspirin. Can encourage patient to also continue to take iron supplementation. Roxicodone as needed for ongoing pain control 30 minutes is spent with planning and coordinating discharge orders Follow-up appointment is scheduled with primary care provider for 12/03 <Darius Jack D - Last Filed: 11/27/16 12:12> Objective Vital signs: Temperature 98.4 F 11/27/16 07:00 Pulse Rate 79 11/27/16 10:57 Respiratory Rate 18 11/27/16 10:57 Blood Pressure 124/77 11/27/16 10:57 Pulse Oximetry 96 11/27/16 10:57 Oxygen Delivery Method Room Air Results - Labs CBC & Chem 7: 11/27/16 04:11 11/26/16 04:36 Assessment and Plan (1) Status post total hip replacement, left Status: Acute (2) Uncontrolled pain Status: Resolved (3) Anemia Status: Acute (4) Arthritis Status: Chronic (5) HTN (hypertension) Status: Chronic (6) High cholesterol Status: Chronic (7) Depression Status: Chronic Assessment and Plan: Have independently interviewed and examined pt. Chart reviewed. Case discussed with my PERSONAL CARE AIDE. Above care plan developed with my supervision; agree with above. Doing very well overall. Pain controlled. Strength and functional abilities improving. No problems with oral intake. No ab pain. Breathing well. No chest pain. Feels ready for discharge to home to continue therapy and recovery in outpatient setting. Lungs: clear - no distress on Room air CV: regular MSE: awake alert appropriate; thoughts linear. Gen: looks energetic. No appearing uncomfortable or in any acute distress Plan; Agree with discharge to home plans. Encourage pt to continue to work on exercises to help strength and stability. Continue ASA for DVT prevention. Oral Iron due to anemia. Monitor lab. F/U with PCP in near future as well as with ortho as scheduled. Medically stable for discharge from IRU. See orders for details. Hospital Course Summary Disclaimer: The visit summary below is not to be considered part of the above Progress Note.
--- NOTE | 2016-12-23 07:11 | Discharge Summary ---
Discharge Information Date of admission: 11/24/16 14:55 Attending Physician: Danny Jaimes MD Primary care physician: Osvaldo Lakhani Consults: 11/24/16 16:43 Case Management Consult [CONS] Routine Reason For Exam: Discharge Planning 11/24/16 16:50 Physician Consult [CONS] Routine Consulting Provider: Darius Jack Reason For Exam: Medical Management Ordering Provider has Notified Instructor Dramatic Arts: No - Discharge Diagnosis (1) Uncontrolled pain Status: Resolved (2) Status post total hip replacement, left Status: Acute (3) Depression Status: Chronic - Laboratory Labs: 11/27/16 04:11 11/26/16 04:36 History of Present Illness HPI: 61 yo female s.p. left hip replacement on 11/24. She had been working with physical therapy and outpatient orthopedics in an attempt to avoid the replacement, but was unsuccussful. Post op, she was unable to manage adl due to pain and depression. She had been very motivated prior to surgery and was not able to continue this post op. She is admitted to IRU due to increased risk of injury and failure from depression and uncontrolled pain. Hospital Course This is a general summary of the patient's hospital course. For more details refer to the complete medical record. Hospital course: Patient brought to IRU due to hip replacement with surgical repair. She was unable to manage ADLs independently. She had dramatic and rapid recovery while in IRU. She was extremely motivated, extremely cooperative with staff. See hospital summary below, patient at time of discharge was independently safe and ready to return home. 11/27/16 Overall, patient is medically stable for discharge. Did give patient a written order to obtain a CBC on Wednesday 11/29 at [facility], her primary care in [place]. Would like a CBC sent to Dr. Osvaldo Lakhani to continue to monitor the stopper of anemia. In the meantime. Did discuss signs and symptoms in which patient needs to return to [facility] emergency room including lightheadedness, passing of blood from her stools or other bleeding. She will continue on aspirin 325 milligrams twice a day for 5 weeks for postoperative DVT prophylaxis. We did discuss limiting further NSAIDs while on aspirin. Can encourage patient to also continue to take iron supplementation. Roxicodone as needed for ongoing pain control 30 minutes is spent with planning and coordinating discharge orders Follow-up appointment is scheduled with primary care provider for 12/03 Discharge Plan - Med Rec/Dispo Referrals/Follow Up: Osvaldo Briggs [Other] (Dr. Maci Lakhani on 12/03/16 at 10:00 am for Hosp. follow-up. [facility] [address] [place] [address]. . Will need CBC lab draw at that time to check blood counts) Garrett Guzman MD [Physician] - (Dr. Tiffanie Guzman on 12/15/16 at 1:30 pm for Post-Op follow-up. [address] [place] [place] [address] ) Christian Instructions: Clavicle Fracture (DC), Anemia (DC) Additional Instructions: Please call clinic wednesday 11/29 to have CBC blood count checked Will need to take ASA 325 mg twice a day for 5 weeks. Monitor for any bleeding. Prescriptions: New Oxycodone *Ir* [Roxicodone *Ir*] 5 - 15 mg PO Q3H PRN #30 tablet PRN Reason: Breakthrough Pain PEG 3350 17gm PACKET [Miralax] 17 gm PO DAILY packet Sennosides [Senna Lax] 17.2 mg PO HS tablet Naproxen [Aleve] 440 mg PO BID PRN tablet PRN Reason: Pain Estradiol [Estrace] 2 mg PO DAILY tablet Docusate Sodium [Colace] 100 mg PO BID capsule Aspirin *EC* [Ecotrin] 325 mg PO BID tablet Pregabalin Cap [Lyrica] 100 mg PO QID capsule LORazepam [Ativan] 1 mg PO HS PRN tablet PRN Reason: Sleep Acetaminophen [Tylenol] 650 mg PO QID tablet Continue Venlafaxine HCl [Effexor Xr] 150 mg PO DAILY #0 Ferrous Sulfate 1 tab PO TID Discontinued Lisinopril 20 mg PO DAILY #0 No Action Estradiol 2 mg PO DAILY #0 Acetaminophen [Tylenol] 650 mg PO QID tablet Aspirin *EC* [Ecotrin] 325 mg PO BID tablet Naproxen [Aleve] 440 mg PO BID PRN tablet PRN Reason: Pain Oxycodone *Ir* [Roxicodone *Ir*] 5 - 15 mg PO Q3H PRN #60 tablet PRN Reason: Breakthrough Pain Discharge Instructions/Outpatient Orders: Final Provider Discharge Instructions Location: Determined By Patient - Disposition 01 Discharged Home, Self-Care
== END 2016-11-27 10:53 | disposition home or self-care (01) | DRG 561 ==
PROVIDERS: ADMIT Family Medicine; ATTEND Family Medicine

== ENCOUNTER 2017-11-24 07:30 | Inpatient (IN) ==
[~2017-11-24 07:30] MED LIST changes: -CLINDAMYCIN PREMIX 900 MG/50 ML BAG IV ONE; +FAMOTIDINE PB 20 MG/50 ML BAG IV ONE; -FAMOTIDINE PREMIX 20 MG/50 ML BAG IV ONE; -LIDOCAINE 1% (10mg/ml) 10mL MDV SQ ONE; +LIDOCAINE 1% (10mg/ml) 2mL INJ PF SDV ID ONE; -NOZIN NASAL SWAB NAS ONE
[2017-11-24] MEDS ORDERED: EPINEPHrine PF 0.25 MG, BUPIVACAINE 0.25% PF 30 ML, KETOROLAC INJ 60 MG in NS 30 ML OPSITE ONE (08:00)
--- OUTSIDE RECORDS SUMMARY | 2017-11-24 09:11 | External Medical Summary ---
:1955 Author Organization [facility]. Summary purpose CCDA Sent to [facility] Chief Complaint and Reason for Visit Admit Diagnosis 1 WOUND CARE THERAPY POST-OP Problem list Condition Status Certainty Chronicity Onset .Low back pain; R/T SPINAL SURGERY AND FUSION Resolved Encounters The following conditions tracked for encounter diagnoses were recorded for this visit: Finding or Diagnosis Status Certainty Chronicity Onset .Low back pain; R/T SPINAL SURGERY AND FUSION Resolved Medications Discharge Medications Status Medication Directions Stopped azelastine 137 mcg (0.1 %) nasal spray 1 spray(s) nasal BID NEEDED aerosol Stopped fluticasone 50 mcg/actuation nasal 1 spray(s) nasal BID NEEDED spray,suspension Stopped lisinopril 20 mg tablet 2 tab(s) oral DAILY Stopped Miralax 17 gram oral powder packet 1 packet(s) oral DAILY Stopped venlafaxine ER 150 mg capsule,extended 1 capsule(s) oral DAILY release 24 hr Allergies, adverse reactions, alerts Allergen Category Ingredient Status Reaction Severity Onset morphine Drug morphine Active itching would Mild Adult wake up her up Sulfa Drug Sulfa Active (Sulfonamide (Sulfonamide Antibiotics) Antibiotics) metoprolol Drug metoprolol Active headaches Adolescence amoxicillin Drug amoxicillin Active Rash Adolescence Immunizations No immunizations recorded for this patient visit Relevant diagnostic tests and/or laboratory data RESULTS [id number]:22:05 Discharge Summary back pain CBC [id number]:55:00 Result Normal Range Units WBC 8.37 4.8-10.8 x103/mm3 Neutrophil % 62.7 50-70 % Lymph % 21.6 20-50 % Elbert % 6.5 1.0-9.0 % Eosinophil % H 8.8 0-4 % Basophil % 0.4 0-2 % Neutrophil # 5.25 3.0-7.0 x103/mm3 Lymph # 1.81 1.0-4.0 x103/mm3 [place]bert # 0.54 0.0-0.8 x103/mm3 Eosinophil # H 0.74 0-0.5 x103/mm3 Basophil # 0.03 0-0.2 x103/mm3 RBC L 2.35 4.20-5.40 x103/mm3 HGB LC 7.4 12.0-16.0 g/dl PERVIOUS CRITICAL HCT L 23.6 37.0-47.0 % MCV H 100.4 81-99 FL MCH H 31.5 27.0-31.0 pg MCHC L 31.4 32.0-36.0 g/dl RDW 13.4 12-15 % Platelet 384 150-400 x103/mm3 MPV 8.5 6.0-10.0 FL :25:00 Result Normal Range Units WBC 7.33 4.8-10.8 x103/mm3 Neutrophil % 50.4 50-70 % Lymph % 33.8 20-50 % [place]bert % 8.6 1.0-9.0 % Eosinophil % H 6.7 0-4 % Basophil % 0.5 0-2 % Neutrophil # 3.69 3.0-7.0 x103/mm3 Lymph # 2.48 1.0-4.0 x103/mm3 Elbert # 0.63 0.0-0.8 x103/mm3 Eosinophil # 0.49 0-0.5 x103/mm3 Basophil # 0.04 0-0.2 x103/mm3 RBC L 2.34 4.20-5.40 x103/mm3 HGB LC 7.4 12.0-16.0 g/dl HCT L 23.1 37.0-47.0 % MCV 98.7 81-99 FL MCH H 31.6 27.0-31.0 pg MCHC 32.0 32.0-36.0 g/dl RDW 12.9 12-15 % Platelet 314 150-400 x103/mm3 MPV 9.1 6.0-10.0 FL :50:00 Result Normal Range Units WBC 7.84 4.8-10.8 x103/mm3 Neutrophil % 52.1 50-70 % Lymph % 34.2 20-50 % Elbert % 7.7 1.0-9.0 % Eosinophil % H 5.5 0-4 % Basophil % 0.5 0-2 % Neutrophil # 4.09 3.0-7.0 x103/mm3 Lymph # 2.68 1.0-4.0 x103/mm3 Elbert # 0.60 0.0-0.8 x103/mm3 Eosinophil # 0.43 0-0.5 x103/mm3 Basophil # 0.04 0-0.2 x103/mm3 RBC L 2.17 4.20-5.40 x103/mm3 HGB LC 7.0 12.0-16.0 g/dl REP/VERIFIED BY [facility] CALLED TO VANESA/RICARDO @ [id number]/09/13 [facility] HCT L 21.0 37.0-47.0 % MCV 96.8 81-99 FL MCH H 32.3 27.0-31.0 pg MCHC 33.3 32.0-36.0 g/dl RDW 12.3 12-15 % Platelet 218 150-400 x103/mm3 MPV 9.1 6.0-10.0 FL Urinalysis :30:00 Result Normal Range Units Site VOID Color Yellow Urine Appearance Cloudy Specific [place] 1.020 1.005-1.030 pH 5.0 5.0-9.0 Protein Negative Negative Glucose AB Trace Negative Ketones AB Trace Negative Bilirubin Negative Negative Blood AB Trace-inta Negative Nitrite Negative Negative Urobilinogen H 1.0 0.20 mg/dl Leukocyte AB Trace Negative Amorphous Crystals 2+ Urine Bacteria 2+ Urine Comments SPECIMEN IS BEING SENT TO REF LAB FOR CULTURE. [facility] Urine RBC N0-2 Urine WBC N3-5 Reference Lab Group [id number]:30:00 Result Normal Range Units Culture Urine See Comment .Site: Received : 08/31/16 16:50 .Order#: [id number] Urine Culture FINAL 09/01/16 14:29 S .Low counts of multiple isolates. .No further workup will be performed on this culture. .S: Performed at:[facility], [place], [place] CLIA#[id number] [place] FOR RESULTS: * - NEW RESULT - RESULT WAS MODIFIED AFTER FINAL STATUS SET Urine Culture performed at [facility] Reference Lab, [address] [place] [address] [employer] Pump Tender Alexus Ward, DO Urinalysis with Microscopic :30:00 Result Normal Range Units Site VOID Color Yellow Urine Appearance Cloudy Specific [place] 1.020 1.005-1.030 pH 5.0 5.0-9.0 Protein Negative Negative Glucose AB Trace Negative Ketones AB Trace Negative Bilirubin Negative Negative Blood AB Trace-inta Negative Nitrite Negative Negative Urobilinogen H 1.0 0.20 mg/dl Leukocyte AB Trace Negative Amorphous Crystals 2+ Urine Bacteria 2+ Urine Comments SPECIMEN IS BEING SENT TO REF LAB FOR CULTURE. [facility] Urine RBC N0-2 Urine WBC N3-5 History of procedures No procedures recorded for this patient visit. Functional status Functional Status Finding Observation Time Weight Bearing Statu Full :23 Transferring/Ambulat Needs Assistance :45 Bathing Needs Assistance :45 Dressing Needs Assistance :45 Eating Independent : Drinking Needs Assistance : Toileting Uses a Device : Able to Turn Self in Independent :45 Cognitive Status Finding Observation Time Level of Consciousne Alert [id number]:15 Oriented to Person Yes [id number]:[address] Yes 04-43-063023:15 Oriented to Time Yes 50-02-562559:15 Eyes - KUMAR Yes [id number]:00 Vital signs Type Value Date Respirations 18 :39 Pulse 83 :39 O2 Saturation 96% :39 Systolic Blood Press 136mm/HG :39 Diastolic Blood Pres 83mm/HG :39 Temperature (Fahr) 98Degrees :39 Height 64.5in :45 Weight 186.2LB :45 Social history Type Value Smoking Status CURRENT LIGHT TOBACCO SMOKER Treatment Plan No treatment plan text is available for this visit. Hospital discharge instructions Diagnosis low back pain Diet no restrictions Activity Level increase slowly as able Flu Vaccine Given Current/Not Needed Pneumonia Vaccine Gi Current/Not Needed Follow up with [facility] Appointment Date and later this week Comment: pt requested that she would like to make this appointment so that someone could go with her Other Instructions Return or call for any return, increased or new symptoms.
--- OUTSIDE RECORDS SUMMARY | 2017-11-24 09:11 | External Medical Summary | Referral Summary ---
:1955 Author [facility] Address [address] [place] [address] Care Team Providers Name Role Phone Osvaldo Lakhani Primary Care Physician Encounter VC Date(s): 11/10/15 - 11/10/15 [facility] [address] [place], [place] [address] [place] Discharge Disposition: 01-Home or Self Care Attending Physician: Lavern Glover Admitting Physician: Lavern Glover Vital Signs Most recent to oldest [Reference Range]: 1 Peripheral Pulse Rate [60-100 bpm] 81 bpm (11/10/15 4:00 PM) Blood Pressure [90-140/60-90 mmHg] 118/78 mmHg (11/10/15 4:00 PM) SpO2 98 % (11/10/15 4:00 PM) Problem List No Known Problems Allergies, Adverse Reactions, Alerts Substance Reaction Severity Status amoxicillin Active morphine Active sulfa drugs Active Medications Nino-Gest 500 mg oral tablet, chewable 250 mg 0.5 tabs, Chewed, BID, # 15 tabs, 0 Refill(s) Start Date: 11/10/15 Status: OrderedEffexor XR Oral, Daily, 0 Refill(s) Start Date: 11/10/15 Status: OrderedEstrasorb packets, Topical, Daily, 0 Refill(s) Start Date: 11/10/15 Status: OrderedEstrasorb packets, Topical, Daily, 0 Refill(s) Start Date: 11/10/15 Status: OrderedFish Oil 1200 mg oral capsule mg caps, Oral, TID, 0 Refill(s) Start Date: 11/10/15 Status: OrderedGas-X with Maalox caps, Oral, q2hr, 0 Refill(s) Start Date: 11/10/15 Status: Orderedlisinopril 20 mg oral tablet 20 mg 1 tabs, Oral, Daily, # 30 tabs, 0 Refill(s) Start Date: 11/10/15 Status: OrderedMag-G 500 mg oral tablet 500 mg 1 tabs, Oral, BID, # 28 tabs, 0 Refill(s) Start Date: 11/10/15 Stop Date: 11/24/15 Status: OrderedVitamin B6 Daily, 0 Refill(s) Start Date: 11/10/15 Status: OrderedVitamin C 0 Refill(s) Start Date: 11/10/15 Status: Ordered Results No data available for this section Immunizations No data available for this section Procedures No data available for this section Social History No data available for this section Assessment and Plan Extracted from: Title: CPAP: LYNN CHINSTRAP /MED RODRIGUEZ FX FH WITH Author: Jasmyne Rizvi Date: 05/14/15 HEADGEAR ON 05-13-15 CPAP SUPPLIES Addendum by Jasmyne Rizvi on May 14, 2015 17:48 [employer] CORRECT ENTRY IS 05-13
--- OUTSIDE RECORDS SUMMARY | 2017-11-24 09:11 | External Medical Summary ---
:1955 Author Organization [facility]. Summary purpose CCDA Sent to [facility] Chief Complaint and Reason for Visit No authorized Reason for Visit (Admitting Diagnosis) is available for this visit. Problem list No authorized problems tracked for continuity of care are available for this visit. Encounters No authorized problems tracked for encounter diagnoses are available for this visit. Medications No medications recorded for this patient visit Allergies, adverse reactions, alerts No allergy information is available for this patient. Immunizations No immunizations recorded for this patient visit Relevant diagnostic tests and/or laboratory data RESULTS :01:26 Discharge Summary here for colonoscopy History of procedures No procedures recorded for this patient visit. Functional status Cognitive Status Finding Observation Time Level of Consciousne Alert [id number]:25 Oriented to Person Yes [id number]:[address] Yes 18-00-156796:25 Oriented to Time Yes 90-77-181975:25 Vital signs Type Value Date Respirations 16 42-44-289311:32 Pulse 67 52-57-758647:32 O2 Saturation 97% 10-63-108399:20 Systolic Blood Press 107mm/HG 36-68-339372:32 Diastolic Blood Pres 71mm/HG 48-79-614498:32 Temperature (Fahr) 98.7Degrees 17-90-760710:00 Social history No Social History or smoking status observations were recorded for this visit. ( Unknown if ever smoked.) Treatment Plan Treatment Plan at follow up with PCP Hospital discharge instructions No discharge instruction text is available for this visit.
--- OUTSIDE RECORDS SUMMARY | 2017-11-24 09:11 | External Medical Summary ---
:1955 [address] [facility]. Summary purpose CCDA Sent to [facility] Chief Complaint and Reason for Visit Admit Diagnosis 1 OPEN WOUND SITE NOS Problem list No authorized problems tracked for continuity of care are available for this visit. Encounters No authorized problems tracked for encounter diagnoses are available for this visit. Medications No home medications recorded for this patient visit Allergies, adverse reactions, alerts No allergy information is available for this patient. Immunizations No immunizations recorded for this patient visit Relevant diagnostic tests and/or laboratory data RESULTS CBC [id number]:20:00 Result Normal Range Units WBC 6.63 4.8-10.8 x103/mm3 Neutrophil % 55.9 50-70 % Lymph % 29.7 20-50 % [place] % 7.2 1.0-9.0 % Eosinophil % H 6.0 0-4 % Basophil % 1.2 0-2 % Neutrophil # 3.70 3.0-7.0 x103/mm3 Lymph # 1.97 1.0-4.0 x103/mm3 [place] # 0.48 0.0-0.8 x103/mm3 Eosinophil # 0.40 0-0.5 x103/mm3 Basophil # 0.08 0-0.2 x103/mm3 RBC L 4.19 4.20-5.40 x103/mm3 HGB 12.8 12.0-16.0 g/dl HCT 38.7 37.0-47.0 % MCV 92.4 81-99 FL MCH 30.5 27.0-31.0 pg MCHC 33.1 32.0-36.0 g/dl RDW 13.0 12-15 % Platelet 250 150-400 x103/mm3 MPV 9.6 6.0-10.0 FL History of procedures Procedure Code Code Type Description Date Performed Performing Physician 39741 CPT-4 COMPLETE CBC AUTOMATED 01-09-2015 AFIA WALKER Functional status No functional or cognitive status observations are available for this visit. Vital signs No authorized vital signs are available for this visit. Social history No Social History or smoking status observations were recorded for this visit. ( Unknown if ever smoked.) Treatment Plan No treatment plan text is available for this visit. Hospital discharge instructions No discharge instruction text is available for this visit.
--- OUTSIDE RECORDS SUMMARY | 2017-11-24 09:11 | External Medical Summary | Referral Summary ---
:1955 Author Organization [facility], [facility] Address [address] [place] [address] Care Team Providers Name Role Phone Osvaldo Lakhani Primary Care Physician Encounter [facility] [phone] Date(s): 05/13/15 - 05/13/15 [facility], [facility] [address], [place] [address] Discharge Disposition: 01-Home or Self Care Attending Physician: Blaine Vera MD Admitting Physician: Blaine Vera MD Referring Physician: Blaine Vera MD Vital Signs No data available for this section Problem List No data available for this section Allergies, Adverse Reactions, Alerts No data available for this section Medications No data available for this section Results No data available for this section Immunizations No data available for this section Procedures No data available for this section Social History No data available for this section Assessment and Plan Extracted from: Title: Cpap: aditi chinstrap/ med casillas fx fh Author: Jasmyne Rizvi Date: with headgear on 05-12-15 cpap supplies
[2017-11-24 09:24] VITALS: BMI 32.5
[2017-11-24] MEDS: LR 1,000 ML IV SCH ×2 (09:45→12:28)
[2017-11-24] MEDS: NOZIN NASAL SWAB NAS SCH ×4 (09:55→21:10)
[2017-11-24] MEDS ORDERED: MELOXICAM 15 MG TABLET PO ONE (10:30)
[2017-11-24] MEDS ORDERED: CEFAZOLIN 1 G INJECTION IVP ONE (11:30)
[2017-11-24] MEDS ORDERED: VANCOMYCIN 1,000 MG INJECTION ONE (11:31)
[2017-11-24] MEDS ORDERED: PROPOFOL 20 ML ONE (11:48)
[2017-11-24] MEDS ORDERED: FentaNYL 250 MCG/5 ML INJECTION ONE (11:51)
[2017-11-24] MEDS ORDERED: MIDAZOLAM 2mg/2ml INJECTION ONE (11:53)
[2017-11-24] MEDS ORDERED: EPHEDRINE 50mg/ml INJECTION ONE (12:05)
[2017-11-24] MEDS ORDERED: SALINE FLUSH 10ml SYRINGE ONE (12:05)
[2017-11-24] MEDS ORDERED: VANCOMYCIN 1,000 MG INJECTION IAR ONE (12:23)
[2017-11-24] MEDS ORDERED: GLYCOPYRROLATE 0.4 MG/2 ML INJECTION ONE (12:26)
[2017-11-24] MEDS ORDERED: SALINE FLUSH 10ml SYRINGE IV PRN (12:39)
[2017-11-24] MEDS ORDERED: PHENYLEPHRINE INJ 10 MG/ML VIAL IV ONE (13:08)
--- NOTE | 2017-11-24 13:19 | Anesthesia Preoperative Report ---
Anesthesia Preoperative Record - Date and Time Date: 11/24/17 Preoperative Diagnosis: Rt TKA NPO Since Date: 11/23/17 NPO Since Time: 23:00 Allergies/Adverse Reactions: Allergies Allergy/AdvReac Type Severity Reaction Status Date / Time pseudoephedrine Allergy Intermediate TACHYCARDIA Verified 11/24/17 09:38 amoxicillin Allergy Mild RASH Verified 11/24/17 09:38 morphine Allergy Mild ITCH Verified 11/24/17 09:38 Sulfa (Sulfonamide Allergy Mild visual Verified 11/24/17 09:38 Antibiotics) disturbances metoprolol AdvReac Intermediate Headache Verified 11/24/17 09:38 rosuvastatin AdvReac Mild MUSCLE Verified 11/24/17 09:38 CRAMPS simvastatin AdvReac Mild MUSCLE Verified 11/24/17 09:38 STIFFNESS - Vital Signs Vital Signs: Temperature 98.3 F 11/24/17 09:21 Pulse Rate 65 11/24/17 09:40 Respiratory Rate 14 11/24/17 09:21 Blood Pressure 137/73 11/24/17 09:21 Pulse Oximetry 96 11/24/17 09:21 Height and Weight: Height 5 ft 4.5 in Weight 87.2 kg Body Mass Index 32.5 - Medications Inpatient Medications: Current Medications Lactated Ringer's (Lactated Ringers) 1,000 mls @ 50 mls/hr IV .Q20H ROBBIN Last Admin: 11/24/17 12:28 Dose: 50 mls/hr Sodium Chloride (Iv Flush) 10 - 80 ml IV PRN PRN PRN Reason: [place] Home Medications: Home Medications Medication Instructions Recorded Confirmed Type Estrace (estradiol) 1 mg tablet 1 mg PO DAILY tab 04/08/17 11/24/17 History Mobic (Meloxicam) 7.5 mg tablet 7.5 mg PO BID tab 04/08/17 11/23/17 History amitriptyline 10 mg tablet 10 mg PO HS tab 04/08/17 11/24/17 History aspirin 81 mg tablet,delayed 81 mg PO DAILY tab 04/08/17 11/23/17 History release Effexor XR (venlafaxine ER) 150 mg 150 mg PO DAILY 07/13/17 11/24/17 History capsule,extended release 24 hr red yeast rice 600 mg capsule 600 mg PO BID cap 07/13/17 11/23/17 History Acetaminophen [Tylenol] 1,000 mg PO 11/24/17 11/24/17 History Is Patient on Beta Jaclyn?: No - Medical History Respiratory: Reports: Chronic Obstructive Pulmonary Disease (COPD), Sleep Apnea Cardiovascular: Reports: Heart Murmur, Hypertension, Valvular Heart Disease Neuro/Musculoskeletal: Reports: Back Problems, Depression, Muscle Weakness, Other (fractured rt clavicle currently) Renal/Endocrine: Reports: Other (hypoglycemia) Other History: Reports: Anesthesia Reactions (N/V) - Surgical History Neurological Surgeries: Reports: Other (lumbar laminectomy; lumbar fusion w/ hardware ) Cardiac Surgeries/Treatments: Reports: Cardiac Catheterization, Other (Mitral valve repair with Medtronic ring) Respiratory Surgery/Treatments: Reports: CPAP Use GI Surgery/Treatments: Reports: Appendectomy, Colonoscopy Musculoskeletal Surgery/Tx: Reports: Carpal Tunnel Release (Lele), Orthopedic Surgery (Rt PCL, ACL, other knee surgeries x2; bunionectomy; hammertoes; torn tendon), Total Hip Replacement (left HERMILA ), Other (repair torn tendon left elbow) Reproductive Surgery/Treatment: Reports: Hysterectomy (BSO 1991), Hysteroscopy, Oophorectomy Anesthesia Reactions: None Hx Family Anesthesia Reaction: No History of Motion Sickness: No - Social History Smoking Status: Former smoker Pack-years: 30 Hx Chewing Tobacco Use: No Second Hand Exposure: No Substance Use Type: does not use Alcohol Intake: current Alcohol Intake Frequency: does not drink - Pertinent Findings Laboratory: CBC and BMP 11/24/17 09:36 11/24/17 09:36 BMP 11/24/17 09:36 Sodium Cancelled Potassium Cancelled Chloride Cancelled Carbon Dioxide Cancelled BUN Cancelled Creatinine Cancelled Glucose Cancelled Calcium Cancelled EKG: Sinus Rhythm - Physical Exam Respiratory Exam: Present: lungs clear, bilateral breath sounds equal Cardiovascular Exam: Present: regular rate and rhythm - Airway Assessment Mallampati Score: II TMD: 3 Fingerbreadths Neck Extension: good Overall Assessment: no airway concerns - ASA ASA Score: 3 - Plan Anesthesia: General Inhalation Gases - Discussion Discussion: Discussed risks/options/alternatives of anesthesia and questions answered. Patient consents. Nursing pain assessment noted. Present for Discussion: spouse Attestation Statement: Prior to the delivery of any anesthetic medication, I examined the patient, developed the plan, obtained the patient's consent and discussed the risk and benefits of the procedure with the patient/guardian. - Additional Information Seen by Anesthesia: Yes
--- NOTE | 2017-11-24 13:46 | Operative Note ---
- Procedure Preoperative Diagnosis: Right knee primary degenerative joint disease Postoperative Diagnosis: Same as preoperative diagnosis. Surgeon: Martinez Guzman MD Front End Software Developer: Yonathan Bonilla Complications: None. Anesthesia: Spinal. Estimated Blood Loss: See Anesthesia Record. Fluids: Please see Anesthesia Record. Description of Procedure: Mrs. Gamboa and her right knee were identified and marked in the preoperative holding area. She was brought back to the operating suite and she was placed under general anesthesia. The right lower extremity was prepped and draped in my normal sterile fashion. Timeout was performed. The [employer] Cauldron robotic arm was used during the surgery. She had previous anterior cruciate ligament reconstruction and had considerable laxity both in flexion and in extension. She had a positive anterior drawer sign. The previous tibial screw and washer removed through a separate 1 cm incision. A standard anterior midline incision followed by medial parapatellar arthrotomy was performed. Anterior fat pad and meniscus were removed. The patella was everted and a patellar osteotomy was performed leaving 12 mm of bone. Tibial and femoral arrays and checkpoints were placed both within the original incision. The bone was then registered with the Bit Cauldron robot. Osteophytes were removed and gaps were captured both 90 and 0 with correction. The knee was balanced with placing the femoral component 1 of varus and the tibial component also 1 of varus given her laxity I balanced her with 17 mm gaps and flexion and 16 mm gaps in extension. The Bit Cauldron robotic arm was then used to assist with the bone cuts. Posterior osteophytes and remaining meniscus were removed. Trial components were placed. We used a 3 femur and a 4 tibia with a 9 mm spacer and a 29 patella. She tracked well after lateral release and was well balanced throughout range of motion. The arrays were then removed and the knee exsanguinated and the tourniquet inflated to 250 mmHg. The tibia was then stamped the proper rotation. I then cemented the components into place and allowed them to cure in extension. During this time the tourniquet was let down and hemostasis was obtained with electrocautery. After the cement had cured the knee again was taken through range of motion and was well balanced and tracked well. After a final thorough irrigation with normal saline as well as Betadine 1 g vancomycin powder was placed into the knee joint. We then closed the capsule with #1 Vicryl. I then left my assistant golf professional closed the subcutaneous tissue with both 2-0 Vicryl in an interrupted fashion. The subcutaneous tissue closed with a iam Monoderm followed by Dermabond. Mediplex dressing will be placed and the patient will be taken back to the recovery room under the care of anesthesia.
[2017-11-24] MEDS ORDERED: ONDANSETRON 4 MG/2 ML INJECTION ONE (13:56)
[2017-11-24] MEDS ORDERED: DEXAMETHASONE 4 MG/ML INJECTION ONE (13:56)
[2017-11-24] MEDS ORDERED: ROPIVACAINE 0.5% (5mg/ml) 30ml INJ ONE (14:00)
--- NOTE | 2017-11-24 14:42 | Anesthesia Procedure Note ---
Peripheral Nerve Blockade - Procedure Physician: Garrett Guzman MD Date: 11/24/17 Surgical Procedure: Right TKA Discussion: Discussed risks/options/alternatives of anesthesia and questions answered. Patient consents. Nursing pain assessment noted. Block Start: 14:35 Block Stop: 14:36 Block Employed: Adductor Canal-Right Indication: Post-Operative Pain Approach: Right Side Confirmed Position: Supine Patient: Consent, Risks/Benefits Discussed, Informed, Post Block Act. Discussed IV Sedation: No (Sleeping) Initial Vital Signs: Temperature 98.3 F 11/24/17 09:21 Temperature Source Oral 11/24/17 09:21 Pulse Rate 77 11/24/17 09:21 Respiratory Rate 14 11/24/17 09:21 Blood Pressure 137/73 11/24/17 09:21 Blood Pressure Mean 94 11/24/17 09:21 Blood Pressure Position Sitting 11/24/17 09:21 Pulse Oximetry 96 11/24/17 09:21 Oxygen Delivery Method 11/24/17 09:21 Post Vital Signs: Temperature 98.3 F 11/24/17 09:21 Pulse Rate 65 11/24/17 09:40 Respiratory Rate 14 11/24/17 09:21 Blood Pressure 137/73 11/24/17 09:21 Pulse Oximetry 96 11/24/17 09:21 Initial Pain Pain Score: 0 Post Block Pain Score: 0 Prep: Chlorhexadine/ETOH Ultrasound Used?: Yes - Injectate Ropivacaine (%): 0.5 Ropivacaine (mL): 15 Was Epi 1:200,000 Used?: No Injection: Injection made incrementally with constant monitoring and aspiration every 5 ml
--- NOTE | 2017-11-24 15:03 | XRay Report ---
Indication: postoperative image PROCEDURE: XR knee RT 2V: Encounter: Initial Comparison: None. Findings: The patient is status post right total knee arthroplasty. The alignment appears anatomic. No definite radiopaque foreign body. There is overlying splint artifact. Impression: Anatomic alignment status post right total knee arthroplasty. .
[2017-11-24] MEDS ORDERED: DiphenhydrAMINE 25 MG CAPSULE PO PRN (15:17)
[2017-11-24] MEDS ORDERED: DiphenhydrAMINE 50 MG/ML INJECTION IVP PRN (15:17)
[2017-11-24] MEDS ORDERED: Oxycodone *IR* 5 MG TABLET PO PRN (15:17)
[2017-11-24] MEDS ORDERED: NOZIN NASAL SWAB NAS ONE (15:17)
[2017-11-24] MEDS ORDERED: LORazepam 1 MG TABLET PO PRN (15:17)
[2017-11-24] MEDS ORDERED: DEXAMETHASONE 20 MG/5 ML INJECTION IVP ONE (15:17)
[2017-11-24] MEDS: NS 1,000 ML IV SCH (15:18)
[2017-11-24] MEDS ORDERED: FALL RISK - PHARMACY CONSULT MC ONE (15:54)
--- NOTE | 2017-11-24 16:53 | Anesthesia Postoperative Note ---
- Date and Time Date: 11/24/17 Time: 15:00 - Status Patient Participated in Evaluation: Patient Participated in Person Vital Signs: Temperature 97.7 F 11/24/17 15:20 Pulse Rate 80 11/24/17 16:05 Respiratory Rate 16 11/24/17 16:05 Blood Pressure 111/68 11/24/17 16:05 Pulse Oximetry 100 11/24/17 16:05 Respiratory Function: Airway Patent Cardiovascular Function: Regular Pulse EKG: Sinus Rhythm Mental Status: Alert and Oriented Pain Intensity: 2 Hydration: IV Infusing Complications During Recover: None Apparent - Follow-Up Instructions Instructions: Per Surgeon
[2017-11-24] MEDS: ACETAMINOPHEN 325 MG TABLET PO SCH ×2 (17:42→21:09)
[2017-11-24] MEDS: CEFAZOLIN 2 G in NS 100 ML IV SCH (20:07)
[2017-11-24] MEDS ORDERED: AMITRIPTYLINE 10 MG TABLET PO SCH (21:00)
[2017-11-24] MEDS ORDERED: SENNOSIDES 8.6 MG TABLET PO SCH (21:00)
[2017-11-24] MEDS: DOCUSATE SODIUM 100 MG CAPSULE PO SCH (21:10)
[2017-11-24] MEDS: MELOXICAM 7.5 MG TABLET PO SCH (21:10)
[2017-11-24] MEDS: ASPIRIN *EC* 81 MG TABLET PO SCH (21:10)
[2017-11-25] MEDS: CEFAZOLIN 2 G in NS 100 ML IV SCH (03:27)
[2017-11-25] MEDS: NS 1,000 ML IV SCH (04:44)
[2017-11-25] MEDS: NOZIN NASAL SWAB NAS SCH ×2 (07:12→13:04)
[2017-11-25] MEDS: ASPIRIN *EC* 81 MG TABLET PO SCH (08:26)
[2017-11-25] MEDS: DOCUSATE SODIUM 100 MG CAPSULE PO SCH (08:26)
[2017-11-25] MEDS: MELOXICAM 7.5 MG TABLET PO SCH (08:26)
[2017-11-25] MEDS: ACETAMINOPHEN 325 MG TABLET PO SCH ×2 (08:26→13:04)
[2017-11-25] MEDS ORDERED: POLYETHYL GLYCOL 3350 17gm PACKET PO SCH (09:00)
--- NOTE | 2017-11-25 09:02 | Orthopedic Progress Note ---
Date: Date: 11/25/17 Time: 858 Subjective/Severity of Illness: Betys is sitting up on the edge of the bed this morning during rounds. Her pain has been well controlled with Roxicodone. She was unable to sleep well last night due to noise. Has been up ambulating with OT this morning. Denies any CP, SOA, nausea. Tolerating PO well. Hgb 9.9 Orthopedic Exam Vital signs: Temperature 97.9 F 11/25/17 07:00 Pulse Rate 73 11/25/17 07:00 Respiratory Rate 14 11/25/17 07:00 Blood Pressure 116/69 11/25/17 07:00 Pulse Oximetry 95 11/25/17 07:00 - Constitutional General Appearance: Present: alert, orientated x3, cooperative, no acute distress, well nourished - Respiratory Exam Present: CTA bilaterally, non-labored - Cardiovascular Exam Present: Regular Rate/Rhythm, pedal pulses intact - Abdominal Exam Present: soft, normoactive BS x4 - Extremities Exam Present: pulses intact. Absent: calf tenderness - Dressing Dressing: dry, intact, bloody drainage Comments: mepilex right knee - Integumentary Exam Present: pink, warm, dry - Neurological Exam Present: intact to light touch, no deficits - Psychiatric Exam Present: alert, oriented - Labs Result Diagrams: 11/25/17 04:15 11/25/17 04:15 Abnormal lab results 11/24/17 11/25/17 11/25/17 Range/Units 09:36 04:15 04:15 Hgb 9.9 L D (12-16) GM/DL MPV 9.2 L (9.4-12.4) UM3 Chloride 108 H (98-107) MEQ/L BUN 18.0 H (7-17) MG/DL Glucose 118 H (65-110) MG/DL H & H 11/24/17 11/25/17 Range/Units 09:36 04:15 Hgb 13.2 9.9 L D (12-16) GM/DL Hct 39.6 (36-46) % Orthopedic Assessment and Plan (1) Status post right knee replacement Status: Acute Assessment and Plan: Current anti-coagulation protocol with ASA 81mg BID x 6 weeks for VTE prophylaxis. SCD's for added protection. PT/OT services to improve independent function. Discharge Planning per Case Management. - Additional Diagnoses Hypertension: stable, resume medications Anemia: no intervention required, patient was asymptomatic, labs monitored Hospital Course Summary Disclaimer: The visit summary below is not to be considered part of the above Progress Note.
--- NOTE | 2017-11-25 09:04 | Discharge Summary ---
Letter to PCP Cover Letter: This is a short letter to update you on your patient's status and to ask for your assistance in managing their postoperative anticoagulation needs. Betsy Gamboa underwent an elective total joint arthroplasty by Dr. Guzman. Aspirin therapy was initiated for DVT prophylaxis. Aspirin 81mg should be given BID for six weeks postoperatively. Details for their hospitalization can be found in the discharge summary attached. The patient is scheduled to see you one week after surgery for a post-operative check. I hope you find the discharge summary informative and helpful as you resume care of your patient after their surgery. If our office can be of any assistance, please feel free to contact us any time. Orthopedic Discharge Info Date of admission: 11/24/17 09:04 Anticipated date of discharge: 11/25/17 Primary care physician: Osvaldo Lakhani Attending Physician: Garrett Guzman MD Consults: 11/24/17 09:10 Consult to Anesthesiology [CONS] Routine Reason For Exam: Preoperative Assessment 11/24/17 15:17 Case Management Consult [CONS] Routine Reason For Exam: Discharge Planning DME-Walker [CONS] Routine Height: 5 ft 4.5 in Weight: 87.2 kg Total Joint Outpatient Therapy [CONS] Routine Comment: Remove dressing in 2 weeks - Discharge Diagnosis (1) Status post right knee replacement Status: Acute - Laboratory Result Diagrams: 11/25/17 04:15 11/25/17 04:15 Laboratory: Abnormal lab results 11/24/17 11/25/17 11/25/17 Range/Units 09:36 04:15 04:15 Hgb 9.9 L D (12-16) GM/DL MPV 9.2 L (9.4-12.4) UM3 Chloride 108 H (98-107) MEQ/L BUN 18.0 H (7-17) MG/DL Glucose 118 H (65-110) MG/DL H & H 11/24/17 11/25/17 Range/Units 09:36 04:15 Hgb 13.2 9.9 L D (12-16) GM/DL Hct 39.6 (36-46) % Orthopedic Discharge HPI - HPI Comments This patient was admitted for elective surgical tx of end stage degenerative joint disease that failed to respond to conservative treatment. Further details of this is found in the admission H&P. Orthopedic Hospital Course Hospital course: 11/25/17 09:02 After appropriate preoperative clearance and signing of operative consent, the patient was given IV antibiotics, according to orthopedic protocol. The patient was taken to the operating room and underwent elective joint arthroplasty. Following surgery, antibiotics were discontinued less than 24 hours according to joint protocol. Appropriate anticoagulants were initiated and SCDs added for DVT prevention. The dressing was clean, dry, and intact. Pain control was obtained via multimodal approach. Bowel motivation addressed with scheduled and PRN medications. Early mobilization was initiated through PT services. Discharge arrangements made by a collaborative effort between the patient and Case Management. HTN- home medications resumed, and well controlled throughout hospital stay Anemia- hgb 9.9, no acute intervention required Patient to schedule medical follow up with PCP 1 week post op. Follow-up is scheduled in 2-3 weeks. Discharge instructions given by orthopedic providers and nursing staff at discharge. Discharge condition was good. Care extended to > 2 midnight stays?: No Discharge Plan - Med Rec/Dispo Referrals/Follow Up: Osvaldo Lakhani [Primary Care Provider] - 12/02/17 10:10 am Yonathna Bonilla PA [Physician Oracle Database Architect] - 12/14/17 10:30 am Christian Instructions: [facility] Postop Instructions Prescriptions: New Aspirin *EC* [Ecotrin] 81 mg PO BID tab Docusate Sodium [Colace] 100 mg PO BID cap Milk of Magnesia [Mom] 30 ml PO DAILY udc Oxycodone *IR* [Roxicodone *Ir*] 5 - 15 mg PO Q3H PRN #60 tab PRN Reason: Breakthrough Pain Acetaminophen [Tylenol] 650 mg PO QID tab Continue Acetaminophen [Tylenol] 1,000 mg PO HS Estrace (estradiol) 1 mg tablet 1 mg PO DAILY tab aspirin 81 mg tablet,delayed release 81 mg PO DAILY tab amitriptyline 10 mg tablet 10 mg PO HS tab Mobic (Meloxicam) 7.5 mg tablet 7.5 mg PO BID tab Effexor XR (venlafaxine ER) 150 mg capsule,extended release 24 hr 150 mg PO DAILY red yeast rice 600 mg capsule 600 mg PO BID cap - Disposition 01 Discharged Home, Self-Care - Dismissal Complete Discharge Instructions are:: Complete
[2017-11-25 12:15] VITALS: BP 115/68; PULSE 74; RESP 18; TEMP 98.7; O2SAT 97
[2017-11-25] MEDS ORDERED: SENNOSIDES 8.6 MG TABLET PO PRN (14:19)
[2017-11-26] MEDS ORDERED: BISACODYL 10 MG SUPPOSITORY RECTALLY SCH (20:00)
== END 2017-11-25 14:27 | disposition home or self-care (01) | DRG 470 ==
LOC: SRG 09:04
PROVIDERS: ADMIT Orthopaedic Surgery; ATTEND Orthopaedic Surgery